=== PATIENT | male | born 1975 | race African-American/Black ===

== ENCOUNTER 2019-01-08 07:51 | Observation (INO) ==
--- NOTE | 2019-01-08 08:31 | PROVIDER DOCUMENTATION ---
[id number] Abuse/Overdose - General Chief Complaint: Edema Stated Complaint: LEGS SWOLLEN Time Seen by Provider: 01/08/19 08:25 Source: patient Allergies/Adverse Reactions: Allergies Allergy/AdvReac Type Severity Reaction Status Date / Time No Known Allergies Allergy Verified 12/15/18 00:55 Home Medications: Home Medication List Medication Instructions Recorded Confirmed Last Taken Type NK [No Home Medications] 01/08/19 01/08/19 Unknown History - History of Present Illness-Drug/Alcohol Nature of Presenting Problem: PT HAS HX OF COCAINE USED LAST NITE 9 PM ALSO HX OF HEART DAMAGE IN PAST HAD A CATH [facility].STOPPED TAKING PRESCRIBED BP MED 2ND TO RECALL IS HERE TODAY FOR SWELLING IN LEG NO SOB NO CP NO CKKDZ This episode of drinking or use began:: gradual Severity: reports: mild Situational problems related to:: reports: N/A Psychiatric Complaints: reports: rapid pulse Similar Symptoms Previously?: No Recently seen or treated by another doctor?: No - Substance Abuse Substance Use: reports: alcohol, marijuana, cocaine Review of Systems - Adult - REVIEW OF SYSTEMS - ADULT Constitutional: reports: no symptoms reported Eyes: reports: no symptoms reported Ears, Nose, Mouth & Throat: reports: no symptoms reported Cardiovascular: reports: edema. denies: chest pain, palpitations Respiratory: denies: no symptoms reported Gastrointestinal: denies: no symptoms reported Genitourinary: denies: frequency Musculoskeletal: reports: no symptoms reported Integumentary: reports: no symptoms reported Neurological: reports: no symptoms reported Psychiatric: reports: anxiety Endocrine: reports: no symptoms reported Hematologic/Lymphatic: reports: no symptoms reported. denies: blood clots Allergic/Immunologic: reports: no symptoms reported Past History - Adult - PAST MEDICAL HISTORY-ADULT Review of Records: reports: Nursing Assessment Review, Medications Reviewed Major Childhood Illnesses: reports: denies history Cardiovascular: reports: other (HEART DAMAGE) Respiratory: reports: denies history Gastrointestinal: reports: denies history Genitourinary: reports: denies history Musculoskeletal: reports: denies history Neurological: reports: denies history Endocrine/Immune: reports: denies history Other Conditions: reports: denies history - PRIOR SURGERIES/PROCEDURES Surgical/Procedure History: reports: none - IMMUNIZATION STATUS Childhood Immunizations: See Nurse Assessment Flu Vaccine: See Nurse Assessment - FAMILY HISTORY Family History: reviewed, not pertinent - SOCIAL HISTORY Smoking: cigarettes Substance Use: alcohol, marijuana, cocaine Physical Exam-General - PHYSICAL EXAM-ADULT Initial Vital Signs Reviewed: Yes - CONSTITUTIONAL General Appearance: appears well, alert, no apparent distress - EYES Eyes: PERRL/EOMI, pink conjunctivae - HEAD, EARS, NOSE, MOUTH & THROAT HENMT: normocephalic/atraumatic - NECK Neck: non-tender, full range of motion, supple - RESPIRATORY Respiratory: lungs clear - CARDIOVASCULAR Cardiovascular: regular rate, rhythm - GASTROINTESTINAL (ABDOMEN) Abdominal Exam: soft - MUSCULOSKELETAL Back Exam: normal inspection, no CVA tenderness Extremity: swelling Peripheral Pulses: dorsalis-pedis (R): 1+, dorsalis-pedis (L): 1+ - SKIN Integumentary: normal color, normal turgor - NEUROLOGIC Neurologic: grossly normal - PSYCHIATRIC Psych/Mental Status: oriented x 3 Progress - PLAN OF CARE/RESULTS Progress/Plan/Lab Results: Vital Signs - 8 hr 01/08/19 08:03 Temperature 98 F Pulse Rate 114 H Respiratory Rate 19 Blood Pressure 147/94 O2 Sat by Pulse Oximetry 98 Laboratory Results - last 24 hr 01/08/19 01/08/19 01/08/19 08:35 08:35 08:35 WBC 8.20 RBC 4.82 Hgb 13.8 L Hct 42.7 MCV 88.6 MCH 28.6 MCHC 32.3 L RDW Std Deviation 13.2 Plt Count 276 MPV 10.9 H Immature Gran % (Auto) 0.2 Neut % (Auto) 66.6 Lymph % (Auto) 24.1 [place] % (Auto) 8.2 Eos % (Auto) 0.5 Baso % (Auto) 0.4 Immature Gran # (Auto) 0.02 Neut # (Auto) 5.46 Lymph # (Auto) 1.98 [place] # (Auto) 0.67 H Eos # (Auto) 0.04 Baso # (Auto) 0.03 Sodium 139 Potassium 4.0 Chloride 104 Carbon Dioxide 24 L Anion Gap 11 BUN 12 Creatinine 1.1 Estimated GFR/1.73 m2 > 60 BUN/Creatinine Ratio 11 Glucose 127 H Calculated Osmolality 279 Calcium 8.3 L Total Bilirubin 2.40 H AST 20 ALT 25 Alkaline Phosphatase 68 Troponin T < 0.010 [id number] Pept Total Protein 5.8 L Albumin 3.9 Globulin 2.0 Albumin/Globulin Ratio 2.0 Urine Source Urine Color Urine Clarity Urine pH Ur Specific [place] Urine Protein Urine Ketones Urine Blood Urine Nitrite Urine Bilirubin Urine Urobilinogen Urine Microscopic RBC Urine WBC Urine Microscopic WBC Ur Epithelial Cells Urine Crystals Urine Bacteria Urine Casts Urine Yeast Urine Glucose Urine Opiates Screen Ur Oxycodone Screen Urine Methadone Screen U Propoxyphene Qual Ur Barbituates Screen Ur Tricyclics Screen Ur Phencyclidine Scrn Ur Amphetamines Screen U Methamphetamines Scrn U Benzodiazepines Scrn Urine Cocaine Screen U Cannabinoids Screen 01/08/19 01/08/19 01/08/19 08:35 08:45 08:45 WBC RBC Hgb Hct MCV MCH MCHC RDW Std Deviation Plt Count MPV Immature Gran % (Auto) Neut % (Auto) Lymph % (Auto) [place] % (Auto) Eos % (Auto) Baso % (Auto) Immature Gran # (Auto) Neut # (Auto) Lymph # (Auto) [place] # (Auto) Eos # (Auto) Baso # (Auto) Sodium Potassium Chloride Carbon Dioxide Anion Gap BUN Creatinine Estimated GFR/1.73 m2 BUN/Creatinine Ratio Glucose Calculated Osmolality Calcium Total Bilirubin AST ALT Alkaline Phosphatase Troponin T Oxs-M-Ckhujnzntcv Pept 5644 H Total Protein Albumin Globulin Albumin/Globulin Ratio Urine Source CLEAN CATCH Urine Color YELLOW Urine Clarity SL. CLOUDY A Urine pH 6.5 Ur Specific [place] 1.025 Urine Protein 3+(500 mg/dL) A Urine Ketones TRACE Urine Blood 1+ A Urine Nitrite POSITIVE A Urine Bilirubin NEGATIVE Urine Urobilinogen 4 Urine Microscopic RBC <10 Urine WBC 1+ A Urine Microscopic WBC TNTC A Ur Epithelial Cells <10 Urine Crystals NONE SEEN Urine Bacteria 3+ Urine Casts NONE SEEN Urine Yeast NONE SEEN Urine Glucose NEGATIVE Urine Opiates Screen NONE DETECTED Ur Oxycodone Screen NONE DETECTED Urine Methadone Screen NONE DETECTED U Propoxyphene Qual NONE DETECTED Ur Barbituates Screen NONE DETECTED Ur Tricyclics Screen NONE DETECTED Ur Phencyclidine Scrn NONE DETECTED Ur Amphetamines Screen NONE DETECTED U Methamphetamines Scrn NONE DETECTED U Benzodiazepines Scrn NONE DETECTED Urine Cocaine Screen PRESUMPTIVE POSITIVE A U Cannabinoids Screen PRESUMPTIVE POSITIVE A Orders Category Date Time Status CHEST-2 VIEWS [RAD] Stat Exams 01/08/19 08:05 Completed CBC WITH ELECTRONIC DIFF [HEME] Stat Lab 01/08/19 08:35 Completed COMPREHENSIVE METABOLIC PANEL [CHEM] Stat Lab 01/08/19 08:35 Completed PRO B-NATRIURETIC PEPTIDE Stat Lab 01/08/19 08:35 Completed TROPONIN T Stat Lab 01/08/19 08:[address] W/POSS RFLX CULT [URINALYSIS] Stat Lab 01/08/19 08:45 Completed URINE CULTURE [RM] Routine Lab 01/08/19 09:11 [address]UG SCREEN [address] Stat Lab 01/08/19 08:45 Completed EKG [EKG] Routine Ther 01/08/19 08:41 Draft Result Diagrams: 01/08/19 08:35 01/08/19 08:35 - EKG 1 Time of EKG reading by physician:: 09:38 EKG Read and Signed by:: Alejandro Macias EKG Interpretation (*Must complete 3 of following elements*): Abnormal Rate: 110 Rhythm: sinus tachycardia [place]: normal QRS: poor R wave progression NC Interval: normal ST Wave: non-specific ST changes - XRAY 1 XRAY Study: Chest Impression: Abnormal (cardiomyopathy chf) Departure - Departure Date of Disposition Decision: 01/08/19 Time of Disposition Decision: 09:41 DIAGNOSIS: Cocaine abuse, Cardiomyopathy due to drug and external agent, Hypertension Disposition: ADMITTED INPATIENT 09 Certified Medical Emergency: Emergent Condition: Stable Referrals and Follow-Ups: None,PCP [Primary Care Provider] - - Critical Care Note This patient required my direct & personal management of CC.: No Attestation - Physician/ JUD Attestation Patient care was provided by Advanced Practice Provider:: No The physician spent face to face time with patient:: Yes Advanced Practice Provider documentation review:: Supervising physician onsite and consulted in the evaluation and care of this patient. The physician did have a face to face encounter with the patient.
[2019-01-08 08:50] LABS: BASO# 0.03 X1000 (0.0-0.2); BASO% 0.4 % (0.0-0.8); EOS# 0.04 X1000 (0.0-0.7); EOS% 0.5 % (0.0-10.0); HEMATOCRIT 42.7 % (42.0-52.0); HEMOGLOBIN 13.8 g/dL (14.0-18.0); IMM GRAN# 0.02 X1000 (0.0-0.04); IMM GRAN% 0.2 % (0.0-0.5); LYMPH# 1.98 X1000 (1.2-3.4); LYMPH% 24.1 % (20.5-51.1); MCH 28.6 PG (27-31); MCHC 32.3 g/dL (33-37); MCV 88.6 FL (81-99); MONO# 0.67 X1000 (0.11-0.59); MONO% 8.2 % (1.7-9.3); MPV 10.9 FL (7.4-10.4); NEUT# 5.46 X1000 (1.4-6.5); NEUT% 66.6 % (42.2-75.2); PLT 276 X1000 (130-400); RBC 4.82 XMIL (4.7-6.1); RDW 13.2 % (11.5-14.5)
[2019-01-08 09:10] LABS: BILIRUBIN URINE NEGATIVE (NEGATIVE); BLOOD URINE 1+ (NEGATIVE); CLARITY SL. CLOUDY (CLEAR); COLOR YELLOW; GLUCOSE URINE NEGATIVE (NEGATIVE); KETONE URINE TRACE mg/dL (NEGATIVE); LEUKOCYTES URINE 1+ (NEGATIVE); NITRITE URINE POSITIVE (NEGATIVE); PH URINE 6.5; SP GRAVITY URINE 1.025; UROBILINOGEN URINE 4 mg/dL
[2019-01-08 09:11] LABS: URINE BACTERIA 3+ /HFP; URINE CAST NONE SEEN /LPF; URINE CRYSTAL NONE SEEN /HPF; URINE EPITHELIAL CELLS <10 /HPF (<10); URINE RBC <10 /HPF (<10); URINE SOURCE CLEAN CATCH; URINE WBC TNTC /HPF (<10); URINE YEAST NONE SEEN /HPF
[2019-01-08 09:12] LABS: AGAP 11; ALBUMIN 3.9 g/dL (3.5-5.0); ALKALINE PHOSPHATASE 68 U/L (32-122); BUN 12 mg/dL (8-22); CALCIUM 8.3 mg/dL (8.8-10.2); CHLORIDE 104 mmol/L (98-107); COSMO 279; CREATININE 1.1 mg/dL (0.7-1.2); ESTIMATED GFR > 60; GLUCOSE 127 mg/dL (70-104); GOT 20 U/L (10-34); GPT 25 U/L (10-44); SODIUM 139 mmol/L (136-145); TCO2 24 mmol/L (25-35); TOTAL PROTEIN 5.8 g/dL (6.3-8.3)
[2019-01-08 09:14] LABS: UR AMPHETAMINES QUAL NONE DETECTED (NONE DETECT); UR BARBITUATES QUAL NONE DETECTED (NONE DETECT); UR BENZODIAZEPIN QUAL NONE DETECTED (NONE DETECT); UR CANNABINOIDS QUAL PRESUMPTIVE POSITIVE (NONE DETECT); UR COCAINE QUAL PRESUMPTIVE POSITIVE (NONE DETECT); UR METHADONE QUAL NONE DETECTED (NONE DETECT); UR METHAMPHETAMINE QUAL NONE DETECTED (NONE DETECT); UR OPIATES QUAL NONE DETECTED (NONE DETECT); UR OXYCODONE QUAL NONE DETECTED (NONE DETECT); UR PCP QUAL NONE DETECTED (NONE DETECT); UR PROPOXYPHENE QUAL NONE DETECTED (NONE DETECT); UR TCA QUAL NONE DETECTED (NONE DETECT)
--- NOTE | 2019-01-08 09:23 | EKG Report ---
Test Performed on : 01/08/2019 08:28:41 AM Test Reason : emboli Blood Pressure : / mmHG Vent. Rate : 110 BPM Atrial Rate : 110 BPM P-R Int : 134 ms QRS Dur : 086 ms QT Int : 364 ms P-R-T Axes : 049 006 011 degrees QTc Int : 492 ms Sinus tachycardia. Possible Left atrial enlargement ST & T wave abnormality, consider lateral ischemia Abnormal ECG When compared with ECG of 15-DEC-2018 01:19, (Unconfirmed) T wave inversion now evident in Anterior leads Unconfirmed Result
--- NOTE | 2019-01-08 09:31 | Diag Imaging Result Doc PS360 ---
EXAM: CHEST-2 VIEWS HISTORY: edema TECHNIQUE: PA and Lateral chest x-ray COMPARISON: 10/29/2018 FINDINGS: There is cardiomegaly. Question cardiomyopathy or pericardial effusion. There is pulmonary vascular congestion with interstitial infiltrates and small effusions.. No pneumothorax is appreciated. IMPRESSION: Cardiomegaly suggesting cardiomyopathy or pericardial effusion. Suspect developing mild cardiogenic edema versus atypical pneumonia. Correlate clinically. Electronically signed by Mallika Tripp 01/08/2019 9:29 AM
[2019-01-08] MEDS ORDERED: LASIX IV ONE (11:04)
[2019-01-08] MEDS ORDERED: NORVASC PO ONE (11:08)
[2019-01-08] MEDS: PRILOSEC PO SCH (12:02)
--- NOTE | 2019-01-08 15:45 | HISTORY AND PHYSICAL ---
ADDENDUM: Patient was seen and examined by myself. Full note dictated and discussed with nurse practitioner. Patient presented to the hospital with chest pain, palpitations, shortness of breath. He has not been taking his blood pressure medications, but has been using recreational drugs, cocaine. PLAN: We are going to admit the patient to the hospital and rule out WI, place him on Lasix for his edema. Discussed with him the importance of compliance with blood pressure medications and of stopping narcotics. We will continue to follow. cc: Tan Chase MD
--- NOTE | 2019-01-08 18:57 | HISTORY AND PHYSICAL ---
CHIEF COMPLAINT: Lower extremity edema and cough. 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 He presents to the emergency room complaining of 1 week of lower extremity edema and shortness of breath. He states that he had been vaping for quite some time. He presented to the emergency room at [facility] on December 15. At that time he reports being given steroids, albuterol inhaler and hydralazine and told to stop vaping. He states that he took his medications as instructed although he states that he took the steroids as instructed and shortness of breath resolved although over the last week he has developed bilateral lower extremity edema. He does state that he has continued to use cocaine and marijuana throughout this time with the last time he used cocaine being late yesterday evening. He denies any chest pain, any palpitations. PAST MEDICAL HISTORY: Hypertension, cocaine use and abuse, cocaine induced ND in December 2017. PAST SURGICAL HISTORY: Right arm surgery. SOCIAL HISTORY: He smokes about a half a pack a day. He does drink socially. He does use marijuana, cocaine almost daily. ALLERGIES: No known drug allergies. HOME MEDICATIONS: None. REVIEW OF SYSTEMS: Discussed with patient with pertinent positives stated in the HPI. He denied any syncope or dizziness any nausea, vomiting, diarrhea, constipation, black or bloody vomitus or stools, any fevers or chills, any hematuria, dysuria, frequency, urgency. PHYSICAL EXAMINATION: GENERAL: This is a 43-year-old gentleman who is sitting up in the bed on the [facility] floor in no distress. VITAL SIGNS: Blood pressure is 131/90 with a heart rate of 112, respirations are 16, temperature is 98.1 degrees oral with room air saturations 97%. HEENT: Pupils equal, round, react to light. EOMs are intact sclerae anicteric. Head is normocephalic, atraumatic. Mucous membranes are moist. NECK: Supple with trachea midline. CARDIOVASCULAR: Regular rate and rhythm, tachycardic. S1 and S2 are appreciated. He has bilateral lower extremity edema from about midthigh down. Calves are nontender bilateral, peripheral pulses palpable x4 extremities. PULMONARY: Breath sounds are clear. No increased work of breathing noted. GASTROINTESTINAL: Abdomen soft, nontender, nondistended. Bowel sounds in all 4 quadrants. GENITOURINARY: No CVA or suprapubic tenderness. NEUROLOGIC: He is alert and oriented x3. SKIN: Warm and dry. LABS: WBC is 8 with hemoglobin 13.8, hematocrit 42.7, platelets of 276,000. Sodium 139, potassium 4, BUN 12, creatinine 1.1 with a glucose of 127. Troponin is less than 0.010. Urine is positive for nitrites with too numerous to count white blood cells, 3+ bacteria. Urine drug screen is presumptive positive for cocaine and cannabinoids. Urine culture is pending. Chlamydia and GC by urine is pending. ASSESSMENT AND PLAN: 1. Cocaine abuse. 2. Tachycardia secondary to cocaine use. 3. Hypertension in a patient with known hypertensive, noncompliant with medications and cocaine abuse. The patient has been admitted to the medical-surgical floor and placed on telemetry which will continue, will continue to monitor vital signs, daily weights, I and O. healthy heart diet. trend troponins and cardiac profile. BMP in the morning. Norvasc 10 mg now for blood pressure and heart rate avoiding any beta blockers as he has had recent cocaine use. Of note, in review of Mr. Diamond past history echocardiogram in December 2017 revealed an ejection fraction of 50% with borderline left ventricular systolic function with mild hypokinesis. 6. Cardiac catheterization 01/15/2018 revealed no flow-limiting lesions with non ST-elevation myocardial infarction possibly due to coronary spasm versus a spontaneous reperfusion after clot, also could consider possibly takotsubo although left ventriculogram does not appear to be a classic left ventriculogram demonstrating the apical ballooning with basilar hyperkinesis. He needs to be treated medically for his left ventricular wall motion abnormalities. Would recommend permanent cessation of illicit drug. Plan was discussed with Dr. Chase. Further treatments pending hospital course. Dictated by JESICA Alejandro for Tan Chase MD cc: JESICA Alejandro MD [facility]
[2019-01-09 06:27] LABS: HEMATOCRIT 42.5 % (42.0-52.0); HEMOGLOBIN 13.3 g/dL (14.0-18.0); MCH 27.7 PG (27-31); MCHC 31.3 g/dL (33-37); MCV 88.4 FL (81-99); MPV 11.1 FL (7.4-10.4); RBC 4.81 XMIL (4.7-6.1); WBC 9.51 X1000 (4.8-10.8)
[2019-01-09 06:48] LABS: SODIUM 143 mmol/L (136-145)
[2019-01-09 06:49] LABS: AGAP 12; BUN 15 mg/dL (8-22); CHLORIDE 106 mmol/L (98-107); COSMO 287; CREATININE 1.1 mg/dL (0.7-1.2); ESTIMATED GFR > 60; GLUCOSE 115 mg/dL (70-104); TCO2 24 mmol/L (25-35)
[2019-01-09 07:20] VITALS: BP 141/103
--- NOTE | 2019-01-09 08:55 | ECHO REPORT ---
ORDER DATE: 01/08/2019 ECHOCARDIOGRAPHIC MEASUREMENTS: 1. Septal thickness 1.1. 2. Left ventricular internal diameter in diastole 6.4. 3. Posterior wall thickness 1.1. 4. Left ventricular internal diameter in systole 5.5. 5. Aortic root 3.4. 6. Left atrium 4.9. SUMMARY: 1. Adequate quality study. 2. Aortic valve is trileaflet and opens normally on 2-dimensional images. Peak gradient across the aortic valve is less than 5 mmHg. There is very mild aortic regurgitation. Mitral, tricuspid, and pulmonic valves are without evidence of structural abnormality with moderate mitral regurgitation and mild tricuspid regurgitation. The estimated systolic PA pressure by Doppler is 75 mmHg suggesting moderate to severe pulmonary hypertension. The aortic root is normal in size. 3. Moderate left ventricular enlargement with normal wall thickness demonstrated. Estimated left ventricular ejection fraction approximately 15 to 20 percent in the setting of severe global hypokinesis. Following the administration of intravenous contrast agent, Optison, there is no evidence of left ventricular thrombus. Left atrium is moderately enlarged. Right atrium and right ventricle are normal in size with grossly preserved right ventricular systolic function. 4. No pericardial effusion. 5. Appearance of inferior vena cava suggests elevated central venous pressure. cc: MD Racheal Noriega CRNP Gregory S. Cheatham, MD
[2019-01-09] MEDS ORDERED: ASPIRIN PO SCH (09:00)
[2019-01-09] MEDS ORDERED: LOPRESSOR PO SCH (09:00)
[2019-01-09] MEDS ORDERED: NORVASC PO SCH ×2 (09:00)
[2019-01-09] MEDS: PRILOSEC PO SCH (09:57)
[2019-01-09] MEDS ORDERED: COZAAR PO SCH (11:00)
--- NOTE | 2019-01-09 20:04 | DISCHARGE SUMMARY ---
ADMISSION DATE: 01/08/2019 DISCHARGE DATE: 01/09/2019 DISCHARGE DIAGNOSES: 1. Cardiomegaly secondary to cocaine use. 2. Congestive heart failure secondary to cocaine use. 3. Tachycardia secondary to cocaine use. 4. Intentional noncompliance with hypertension as he has not been on medications in well over a year. 5. Cocaine-induced myocardial infarction in December 2017. 6. Continued cocaine usage. CONSULTATIONS: None. PROCEDURES: None. BRIEF HOSPITAL COURSE: The patient is a 43-year-old male who presented to the hospital with markedly elevated blood pressures, congestive heart failure symptoms, and edema. He was treated in the usual fashion, placed on IV Lasix, blood pressure control, oxygen. On discharge, his blood pressures were improved, although still elevated at 140s over 103. We have added losartan 50 mg daily. On multiple different occasions, we discussed with him the importance of stopping cocaine and the perils if he chooses not to. Oddly enough with each discussion, he appeared intrigued as though he had never heard that information in the past. DISPOSITION ON DISCHARGE: Patient is awake, alert. He is in no distress. Overall, he is stable. States he is feeling better. Denies any fevers, chills. States the swelling in his lower extremities is better. States his shortness of breath is improved. MEDICATIONS: We will discharge him home with Norvasc 5 mg, losartan 50 mg daily. Again, discussed with him the importance of stopping smoking and stopping cocaine usage, as well as following up with a primary care and controlling his blood pressure. We discussed with him the importance of a low-salt, low-fat diet. TIME SPENT: Greater than 30 minutes was spent in total. cc: Tan Chase MD
== END 2019-01-09 12:43 | disposition home or self-care (01) ==
LOC: P.ED 07:51 → P.MEDSURG 07:51
PROVIDERS: ADMIT Family Medicine; ATTEND Family Medicine

== ENCOUNTER 2019-03-09 22:29 | Inpatient (IN) ==
[2019-03-09 23:10] LABS: BASO# 0.02 X1000 (0.0-0.2); BASO% 0.2 % (0.0-0.8); EOS# 0.12 X1000 (0.0-0.7); EOS% 1.3 % (0.0-10.0); HEMATOCRIT 42.3 % (42.0-52.0); HEMOGLOBIN 13.7 g/dL (14.0-18.0); IMM GRAN# 0.01 X1000 (0.0-0.04); IMM GRAN% 0.1 % (0.0-0.5); LYMPH# 3.11 X1000 (1.2-3.4); LYMPH% 34.7 % (20.5-51.1); MCH 28.2 PG (27-31); MCHC 32.4 g/dL (33-37); MCV 87.2 FL (81-99); MONO# 0.68 X1000 (0.11-0.59); MONO% 7.6 % (1.7-9.3); MPV 10.9 FL (7.4-10.4); NEUT# 5.03 X1000 (1.4-6.5); NEUT% 56.1 % (42.2-75.2); PLT 229 X1000 (130-400); RBC 4.85 XMIL (4.7-6.1); RDW 12.8 % (11.5-14.5); WBC 8.97 X1000 (4.8-10.8)
[2019-03-09 23:29] LABS: INR 1.17; PROTIME 15.5 Seconds (11.0-16.0)
[2019-03-09 23:30] LABS: PTT 36.3 Seconds (22.3-41.8)
[2019-03-09 23:33] LABS: AGAP 13; ALBUMIN 3.9 g/dL (3.5-5.0); ALKALINE PHOSPHATASE 84 U/L (32-122); BUN 17 mg/dL (8-22); CHLORIDE 104 mmol/L (98-107); COSMO 280; CREATININE 1.2 mg/dL (0.7-1.2); ESTIMATED GFR > 60; GLUCOSE 116 mg/dL (70-104); GOT 13 U/L (10-34); GPT 11 U/L (10-44); POTASSIUM 4.1 mmol/L (3.5-5.1); SODIUM 139 mmol/L (136-145); TCO2 22 mmol/L (25-35); TOTAL PROTEIN 5.9 g/dL (6.3-8.3)
--- NOTE | 2019-03-10 00:46 | PROVIDER DOCUMENTATION ---
This chart was entered by Lashon Loera Scribe, acting as scribe for Marlo Cook MD. HPI-Respiratory General - General Chief Complaint: Shortness of Breath Stated Complaint: SOB Time Seen by Provider: 03/09/19 22:46 Source: patient Allergies/Adverse Reactions: Patient Allergies Allergy/AdvReac Type Severity Reaction Status Date / Time No Known Allergies Allergy Verified 03/09/19 23:13 Home Medications: Home Medication List Medication Instructions Recorded Confirmed Last Taken Type Amlodipine [Norvasc] 5 mg PO DAILY #30 tab 01/09/19 03/09/19 Unknown Rx Aspirin 81 mg PO DAILY #0 chewtab 01/09/19 03/09/19 Unknown Rx Furosemide [Lasix] 40 mg PO DAILY #30 tab 01/09/19 03/09/19 Unknown Rx Losartan [Cozaar] 50 mg PO DAILY #30 tab 01/09/19 03/09/19 Unknown Rx Potassium Chloride E.r. [Micro-K] 10 meq PO DAILY #30 cap 01/09/19 03/09/19 Unknown Rx - History of Present Illness-Resp Nature of Presenting Problem: pt is a 43 yobm presenting to er w/cc sob and orthopnea for 2-3 months w/bilat LE edema. pt sts was seen in er and admitted for similar symptoms. pt has not followed up w/pcp but got rx w/refills from Dr. Chase. pt has hx of chf, heart dz, htn and mi. pt denies pain, diaphoresis and chills. Quality of Pain: reports: none Severity in ED: reports: mild Onset/Duration: reports: other (ongoing 2-3 months) Timing: reports: still present Context: reports: other (CHF) Cough Quality/Degree: reports: no cough Current Respiratory Medication Therapy: Initiated none Modifying Factors: improves with: lying down (worsens) Associated Symptoms: reports: shortness of breath, other (bilat LE edema). denies: fever/chills, heart racing, hurts to breathe Similar Symptoms Previously?: Yes Recently seen or treated by another doctor?: Yes (1.5 mon ago ) Review of Systems - Adult - REVIEW OF SYSTEMS - ADULT Constitutional: reports: no symptoms reported. denies: chills, fever, fatique Eyes: reports: no symptoms reported Ears, Nose, Mouth & Throat: reports: no symptoms reported Cardiovascular: reports: see HPI, edema (bilat LE), orthopnea. denies: chest pain, heart murmur, irregular heart rate, palpitations Respiratory: reports: no symptoms reported, shortness of breath. denies: cough, dyspnea on exertion, hemoptysis, pleurisy Gastrointestinal: reports: no symptoms reported Genitourinary: reports: no symptoms reported Musculoskeletal: reports: no symptoms reported Integumentary: reports: no symptoms reported Neurological: reports: no symptoms reported Psychiatric: reports: no symptoms reported Endocrine: reports: no symptoms reported Hematologic/Lymphatic: reports: no symptoms reported Allergic/Immunologic: reports: no symptoms reported All Other Systems: Reviewed and Negative Past History - Adult - PAST MEDICAL HISTORY-ADULT Review of Records: reports: Nursing Assessment Review, Medications Reviewed, Social history reviewed & non-contributory. Major Childhood Illnesses: reports: denies history Cardiovascular: reports: CHF, HTN, [place], other (HEART DAMAGE) Respiratory: reports: denies history Gastrointestinal: reports: denies history Obstetrical/Gynecological: reports: denies history Genitourinary: reports: denies history Musculoskeletal: reports: denies history Neurological: reports: denies history Endocrine/Immune: reports: denies history Other Conditions: reports: denies history - PRIOR SURGERIES/PROCEDURES Surgical/Procedure History: reports: orthopedic (extremity) - IMMUNIZATION STATUS Childhood Immunizations: See Nurse Assessment Flu Vaccine: See Nurse Assessment - FAMILY HISTORY Family History: reviewed, not pertinent - SOCIAL HISTORY Smoking: cigarettes, greater than 1 pack/day Provider spent 3-5 mins advising pt. on dangers of tobacco.: Discussed manners to quit use, and f/u contacts for add'l counseling. Substance Use: alcohol Alcohol Use Frequency: occasionally Physical Exam-General - PHYSICAL EXAM-ADULT Initial Vital Signs Reviewed: Yes - CONSTITUTIONAL General Appearance: appears well, alert, no apparent distress - EYES Eyes: PERRL/EOMI, pink conjunctivae - HEAD, EARS, NOSE, MOUTH & THROAT HENMT: normocephalic/atraumatic, moist mucous membranes, normal ENT inspection - NECK Neck: non-tender, full range of motion, supple, normal inspection - RESPIRATORY Respiratory: chest non-tender, lungs clear, normal breath sounds, no pleuratic c hest pain, no respiratory distress, no accessory muscle use. negative: crackles, rales, rhonchi, wheezing, crepitus - CARDIOVASCULAR Cardiovascular: normal peripheral pulses, regular rate, rhythm, no gallop, no JVD, no murmur. negative: no edema, extra beats, friction rub, irregularly irregular - GASTROINTESTINAL (ABDOMEN) Abdominal Exam: non tender, soft - LYMPHATIC Lymphatic: no adenopathy - MUSCULOSKELETAL Back Exam: normal inspection, no CVA tenderness, no vertebral tenderness Extremity: normal range of motion, non-tender, no pedal edema, no calf tenderness, normal capillary refill, pelvis stable, swelling (bilat LE edema 2+) . negative: normal inspection, deformity, erythema, pulse deficit, pedal edema, slow capillary refill, tenderness Peripheral Pulses: radial (R): 2+, radial (L): 2+ - SKIN Integumentary: normal color, normal turgor, warm/dry. negative: diaphoresis - NEUROLOGIC Neurologic: applied research director II-XII nml as tested, grossly normal, no motor/sensory deficits - PSYCHIATRIC Psych/Mental Status: normal mood/affect, normal thought content, normal thought process, oriented x 3 - HEART Score HEART Score: History: Moderately Suspicious HEART Score: ECG: Non-Specific Repolarization Disturbance/LBBB/PM HEART Score: Age: < or = 45 Years HEART Score: Risk Factors for Atherosclerotic Disease: > or = 3 Risk Factors or History of Atherosclerotic Disease HEART Score: Troponin: < or = Normal Limit Total HEART Score:: 4 Progress - PLAN OF CARE/RESULTS Progress/Plan/Lab Results: Vital Signs - 8 hr 03/09/19 22:32 03/09/19 23:45 Temperature 98 F Pulse Rate 114 H 111 H Respiratory Rate 20 26 H Blood Pressure 122/90 114/89 O2 Sat by Pulse Oximetry 96 96 Laboratory Results - last 24 hr 03/09/19 03/09/19 03/09/19 22:56 22:56 22:56 WBC 8.97 RBC 4.85 Hgb 13.7 L Hct 42.3 MCV 87.2 MCH 28.2 MCHC 32.4 L RDW Std Deviation 12.8 Plt Count 229 MPV 10.9 H Immature Gran % (Auto) 0.1 Neut % (Auto) 56.1 Lymph % (Auto) 34.7 [place]aston % (Auto) 7.6 Eos % (Auto) 1.3 Baso % (Auto) 0.2 Immature Gran # (Auto) 0.01 Neut # (Auto) 5.03 Lymph # (Auto) 3.11 Gaston # (Auto) 0.68 H Eos # (Auto) 0.12 Baso # (Auto) 0.02 PT INR PTT (Actin FS) Sodium 139 Potassium 4.1 Chloride 104 Carbon Dioxide 22 L Anion Gap 13 BUN 17 Creatinine 1.2 Estimated GFR/1.73 m2 > 60 BUN/Creatinine Ratio 14 Glucose 116 H Calculated Osmolality 280 Calcium 9.0 Total Bilirubin 2.60 H AST 13 ALT 11 Alkaline Phosphatase 84 Troponin T 0.014 Khh-X-Hyaquoezxkc Pept Total Protein 5.9 L Albumin 3.9 Globulin 2.0 Albumin/Globulin Ratio 2.0 03/09/19 03/09/19 22:56 22:56 WBC RBC Hgb Hct MCV MCH MCHC RDW Std Deviation Plt Count MPV Immature Gran % (Auto) Neut % (Auto) Lymph % (Auto) Gaston % (Auto) Eos % (Auto) Baso % (Auto) Immature Gran # (Auto) Neut # (Auto) Lymph # (Auto) Gaston # (Auto) Eos # (Auto) Baso # (Auto) PT 15.5 INR 1.17 PTT (Actin FS) 36.3 Sodium Potassium Chloride Carbon Dioxide Anion Gap BUN Creatinine Estimated GFR/1.73 m2 BUN/Creatinine Ratio Glucose Calculated Osmolality Calcium Total Bilirubin AST ALT Alkaline Phosphatase Troponin T [id number]-Y-Xzvhhyzhxtt Pept 5543 H Total Protein Albumin Globulin Albumin/Globulin Ratio Orders Category Date Time Status CHEST-1 VIEW [RAD] Stat Exams 03/09/19 22:47 Taken CBC WITH ELECTRONIC DIFF [HEME] Stat Lab 03/09/19 22:56 Completed COMPREHENSIVE METABOLIC PANEL [CHEM] Stat Lab 03/09/19 22:56 Completed PRO B-NATRIURETIC PEPTIDE Stat Lab 03/09/19 22:56 Completed PT [PROTIME WITH INR] [COAG] Stat Lab 03/09/19 22:56 Completed PTT [COAG] Stat Lab 03/09/19 22:56 Completed TROPONIN T Stat Lab 03/09/19 22:56 Completed EKG [EKG] Stat Ther 03/09/19 22:36 Ordered Result Diagrams: 03/09/19 22:56 03/09/19 22:56 - EKG 1 Time of EKG reading by physician:: 22:47 EKG Read and Signed by:: Marlo Cook EKG Interpretation (*Must complete 3 of following elements*): Abnormal Rate: 108 (possible left atrial enlargement ) Rhythm: [facility] [place]: normal QRS: normal NC Interval: normal ST Wave: non-specific ST changes (T wave abnormality consider lateral ischemia) - CONSULTS/PCP/HOSPITALIST Notification #1 *Consult/PCP/Hospitalist*: Dr Collins Time Discussed: 00:44 Consult Disposition: Admit Departure - Departure Date of Disposition Decision: 03/10/19 Time of Disposition Decision: 00:45 DIAGNOSIS: CHF exacerbation Disposition: ADMITTED INPATIENT 09 Certified Medical Emergency: Emergent Condition: Fair Referrals and Follow-Ups: None,PCP [Primary Care Provider] - - Critical Care Note This patient required my direct & personal management of CC.: No Attestation - Physician/ JUD Attestation Patient care was provided by Advanced Practice Provider:: No The physician spent face to face time with patient:: Yes Advanced Practice Provider documentation review:: Supervising physician onsite and consulted in the evaluation and care of this patient. The physician did have a face to face encounter with the patient. This chart was documented by the indicated scribe, (Lashon Loera, [place]) and accurately reflects the services I performed and decisions made by me, Marlo Cook MD, as attested by the provider's signature.
[2019-03-10] MEDS ORDERED: ZOFRAN IV PRN (00:47)
[2019-03-10] MEDS ORDERED: ASPIRIN PO ONE (00:49)
[2019-03-10] MEDS ORDERED: LASIX IV ONE (01:18)
--- NOTE | 2019-03-10 02:27 | EKG Report ---
Test Performed on : 03/09/2019 10:47:06 PM Test Reason : SOB Blood Pressure : / mmHG Vent. Rate : 108 BPM Atrial Rate : 108 BPM P-R Int : 148 ms QRS Dur : 086 ms QT Int : 366 ms P-R-T Axes : 059 013 -06 degrees QTc Int : 490 ms Sinus tachycardia. Possible Left atrial enlargement T wave abnormality, consider lateral ischemia Abnormal ECG When compared with ECG of 08-JAN-2019 08:28, T wave inversion no longer evident in Anterior leads Unconfirmed Result
--- NOTE | 2019-03-10 07:28 | Diag Imaging Result Doc PS360 ---
EXAM: CHEST-1 VIEW HISTORY: sob TECHNIQUE: Single view COMPARISON: 01/08/2019 FINDINGS: The lungs are well expanded. The heart remains enlarged. There are infiltrates in the mid left lung. No pleural effusions identified. IMPRESSION: Cardiomegaly with left-sided pneumonia. Follow-up PA and lateral recommended. Electronically signed by Marc King 03/10/2019 7:25 AM
[2019-03-10] MEDS: COZAAR PO SCH (09:11)
[2019-03-10] MEDS: KLOR-CON PO SCH (09:11)
[2019-03-10] MEDS: LASIX IV SCH ×2 (09:11→21:02)
[2019-03-10] MEDS: ASPIRIN PO SCH (09:11)
[2019-03-10] MEDS: NORVASC PO SCH (09:11)
[2019-03-10] MEDS ORDERED: TYLENOL PO PRN (09:59)
[2019-03-10 11:24] LABS: URINE SOURCE CLEAN CATCH
[2019-03-10 11:33] LABS: BILIRUBIN URINE NEGATIVE (NEGATIVE); BLOOD URINE NEGATIVE (NEGATIVE); COLOR STRAW; GLUCOSE URINE NEGATIVE (NEGATIVE); KETONE URINE NEGATIVE (NEGATIVE); LEUKOCYTES URINE NEGATIVE (NEGATIVE); NITRITE URINE NEGATIVE (NEGATIVE); PROTEIN URINE NEGATIVE (NEGATIVE); SP GRAVITY URINE 1.008; TURBIDITY URINE CLEAR (CLEAR); UR EPITHELIAL CELLS <10 /HPF (<10); URINE BACTERIA NEGATIVE /HPF; URINE RBC <10 /HPF (<10); URINE WBC <10 /HPF (<10); UROBILINOGEN URINE NORMAL (NORMAL)
[2019-03-10 11:46] LABS: UR AMPHETAMINES QUAL NONE DETECTED (NONE DETECT); UR BARBITUATES QUAL NONE DETECTED (NONE DETECT); UR BENZODIAZEPIN QUAL NONE DETECTED (NONE DETECT); UR COCAINE QUAL NONE DETECTED (NONE DETECT); UR METHADONE QUAL NONE DETECTED (NONE DETECT); UR METHAMPHETAMINE QUAL NONE DETECTED (NONE DETECT); UR OPIATES QUAL NONE DETECTED (NONE DETECT); UR OXYCODONE QUAL NONE DETECTED (NONE DETECT); UR PCP QUAL NONE DETECTED (NONE DETECT); UR PROPOXYPHENE QUAL NONE DETECTED (NONE DETECT); UR TCA QUAL NONE DETECTED (NONE DETECT)
[2019-03-10 11:47] LABS: UR CANNABINOIDS QUAL PRESUMPTIVE POSITIVE (NONE DETECT)
--- NOTE | 2019-03-10 15:13 | ECHO REPORT ---
ORDER DATE: 03/10/2019 INTERPRETING PHYSICIAN: Dr. Vladislav Avila ECHOCARDIOGRAPHIC MEASUREMENTS: 1. Interventricular septum: 1.1 cm. 2. Posterior wall: 1.1 cm. 3. Diastolic diameter: 6.3 cm. 4. Right ventricle: 5.0 cm. 5. Left atrium: 5.0 cm. 6. Aortic root: 3.2 cm. SUMMARY OF THE 2-DIMENSIONAL IMAGIN. Dilated left ventricle with severely reduced systolic function. Estimated ejection fraction of 20%. There is global hypokinesis. 2. Aortic valve leaflets are trileaflet. 3. Mitral valve was normal. 4. Pulmonic valve was normal. 5. Tricuspid valve was normal. 6. There is mild pulmonary regurgitation. 7. There is moderate mitral regurgitation eccentric. 8. There is moderate tricuspid regurgitation. Peak velocity across the tricuspid valve was 3 m/sec. 9. Pulmonary artery systolic pressure of 50 mmHg. 10. Peak velocity across the aortic valve less than 2 m/sec. There is no aortic stenosis or regurgitation. 11. There is pulmonary arterial hypertension. 12. There is moderate biatrial enlargement. 13. There is diastolic dysfunction. 14. There is no pericardial effusion or obvious intracardiac mass or thrombus seen. cc: Vladislav Avila MD
--- NOTE | 2019-03-10 19:39 | HISTORY AND PHYSICAL ---
PRIMARY CARE PROVIDER: None. EVENT MANAGER: Dr. Avila. CHIEF COMPLAINT: Shortness of breath. HISTORY OF PRESENT ILLNESS: Mr. Desiree Diamond is a 43-year-old male with a medical history of cocaine abuse, marijuana abuse, hypertension, systolic congestive heart failure, [place] from cocaine in December 2017, and is now here with complaints of what he felt like to be fluid on his lungs. He states this has been going on since October or November. He has to sleep in an incline, but most recently over the last couple of days has essentially just been feeling like he is smothering in his sleep, coughing up pink frothy sputum. He has also noticed worsening swelling in the bilateral lower extremities over the last couple of days. He denies being out of medication. He states he is taking his medication as prescribed. He denies having any cocaine use since December. His last admission x-ray shows that there are infiltrates in the mid left lung along with some cardiomegaly. He is currently being treated for acute systolic congestive heart failure, and we are going to get a CT to evaluate the left lower lobe as this is the same thing that was on imaging from December. He denies having fever, chills, or coughing up any colors other than the pink frothy sputum, so will follow up on his CAT scan. PAST MEDICAL HISTORY: 1. Hypertension. 2. Cocaine abuse. 3. Marijuana abuse. 4. Myocardial infarction, secondary to cocaine abuse. This was December 2017. Left heart catheterization showed no coronary disease. 5. Systolic congestive heart failure with last ejection fraction in December of this year being 15 to 20 percent, and a PA systolic pressure of 75 mmHg. 6. Moderate to severe pulmonary hypertension, with systolic pressure of 75 mmHg. PAST SURGICAL HISTORY: Left heart catheterization, December 2017, with a right radial approach. He has not had right arm surgery. He actually just had a right radial approach to his heart catheterization. No other surgeries. SOCIAL HISTORY: Less than a half pack per day. Has been smoking since the age of 18. He also smokes marijuana on a daily basis. Cocaine he last used December 2018, this year. He drinks Estrellita, around 4 to 5 ounces per shot, and he drinks around 2 shots along with 4 to 5 beers on Fridays and Saturdays, essentially every weekend or every other weekend. He is not . He has 2 children. He is on disability. FAMILY HISTORY: Mother had colon cancer. He had a grandmother who had 2 myocardial infarctions. His brother has diabetes. His sister had hydrocephalus. He does not know his father's medical history. ALLERGIES: No known drug allergies. HOME MEDICATIONS: 1. Aspirin 81 mg p.o. daily. 2. Cozaar 50 mg p.o. daily. 3. Lasix 40 mg p.o. daily. 4. Potassium chloride 10 mEq p.o. daily. 5. Norvasc 5 mg p.o. daily. REVIEW OF SYSTEMS: A 14 point review of systems is complete and all were negative except for those mentioned above in HPI. PHYSICAL EXAMINATION: VITAL SIGNS: Temperature 97.6 degrees, heart rate 102, respiratory rate 16, blood pressure 120/101, O2 saturation 98% on room air. GENERAL: Mr. Desiree Diamond is a 43-year-old male. He is in no acute distress. He is able to answer questions appropriately. HEENT: Atraumatic, normocephalic. Pupils equal, round, reactive to light. Extraocular movements intact. Mucous membranes are moist. NECK: Trachea midline. CARDIOVASCULAR: S1, S2. Tachycardic rate and rhythm. No rubs, gallops, murmurs. He has 2+ pitting lower extremity edema, +2 dorsalis pedal pulses, +2 radial pulses. Negative for carotid bruits. He has positive JVD even sitting at a 90 degree angle. PULMONARY: Clear to auscultate. Bilateral breath sounds. No accessory muscle use or work of breathing noted. GI: Soft, nontender, nondistended. Positive bowel sounds x4. EXTREMITIES: Moves all extremities equally. Full range of motion. NEUROLOGIC: Alert and oriented x3. Follows commands. Sensory is intact. SKIN: Warm, dry, intact. LABORATORY DATA: White blood cells 8000, hemoglobin 13, hematocrit 42, platelet count 229,000. INR is 1.17. Sodium 139, potassium 4.1, BUN 17, creatinine is 1.2, glucose 116, calcium 9.0, bilirubin is 2.60, AST 13, ALT 11. Troponin less than 0.01. ProBNP 5543. Albumin 3.9. IMAGING: Chest x-ray: Cardiomegaly with left-sided pneumonia with infiltrates in the mid left lung. EKG: Sinus tachycardia, rate 108, QTc 490. ASSESSMENT AND PLAN: 1. Acute on chronic systolic congestive heart failure, cardiomyopathy, with low ejection fraction. May want to consider getting a cardiology consult while he is here. If not, he definitely needs to follow up with Dr. Avila when he gets out. He states he has not seen him in 6 months. I am not seeing where he is on a beta alvaro such as Coreg or Entresto. May consider starting these medications, but it could be maybe even an issue of not being able to afford it, I am really not sure, but he did get Lasix. He takes Lasix at home and he is getting intravenous Lasix here. His respiratory effort has decreased. He feels like he can breathe much better. He has been having shortness of breath and worsening shortness of breath at night with pink frothy sputum. I do question whether he is taking his medications as prescribed. He did have the amlodipine, the Lasix, the losartan, and the potassium filled on 01/09/2019, but it was only a 30 day supply, so he has probably been out of his medication for at least 2 weeks if he really was taking it like he was supposed to. 2. History of cocaine use and abuse. He states the last time he used was in December when he came in last time. We will get a urine drug screen while he is here. Encouraged to keep away from cocaine. 3. Possible left middle lobe to lower lobe pneumonia. It was present on previous imaging. His white count is normal. He is not coughing up any colors. He has not had any fevers, so we are going to get a CAT scan to evaluate this area. Currently not on antibiotics. He was not given any antibiotics in the emergency room either, so let us just see what this CAT scan shows. We may have to get him started on antibiotics. 4. Tobacco abuse. Cessation discussed. 5. Hypertension. Home medications continued. 6. Deep venous thrombosis prophylaxis. Currently, he has sequential compression devices. 7. Hyperbilirubinemia. Could be secondary to the congestive heart failure. He has had elevated bilirubin levels at least since December 2017. Dictated by JESICA Campbell for Landen Valverde MD Addendum: Patient seen and examined by myself. Agree with JESICA note. It reflects my assessment and plan. Patient is being admitted to hospital for CHF exacerbation. Will order an echocardiogram and will continue with Lasix started at ER. Because of suspicious for pneumonia will order a CT of thorax and will go from there. Patient is not having any fever or any elevated WBC. cc: JESICA Campbell MD MTDD
[2019-03-11 05:58] VITALS: BP 119/88
[2019-03-11 06:42] LABS: BASO# 0.03 X1000 (0.0-0.2); BASO% 0.4 % (0.0-0.8); EOS# 0.09 X1000 (0.0-0.7); EOS% 1.1 % (0.0-10.0); HEMATOCRIT 43.4 % (42.0-52.0); HEMOGLOBIN 13.9 g/dL (14.0-18.0); IMM GRAN# 0.01 X1000 (0.0-0.04); IMM GRAN% 0.1 % (0.0-0.5); LYMPH# 2.39 X1000 (1.2-3.4); MCH 28.1 PG (27-31); MCV 87.7 FL (81-99); MONO# 0.61 X1000 (0.11-0.59); MONO% 7.4 % (1.7-9.3); MPV 10.9 FL (7.4-10.4); PLT 253 X1000 (130-400); RBC 4.95 XMIL (4.7-6.1); RDW 12.7 % (11.5-14.5); WBC 8.23 X1000 (4.8-10.8)
[2019-03-11 07:28] LABS: AGAP 12; BUN 14 mg/dL (8-22); CALCIUM 8.9 mg/dL (8.8-10.2); CHLORIDE 105 mmol/L (98-107); COSMO 283; CREATININE 1.1 mg/dL (0.7-1.2); GLUCOSE 120 mg/dL (70-104); POTASSIUM 3.9 mmol/L (3.5-5.1); SODIUM 141 mmol/L (136-145); TCO2 24 mmol/L (25-35)
[2019-03-11 07:29] LABS: ALBUMIN 3.7 g/dL (3.5-5.0); ALKALINE PHOSPHATASE 71 U/L (32-122); GOT 11 U/L (10-34); GPT 10 U/L (10-44); MAGNESIUM 1.8 mg/dL (1.5-2.7); TOTAL PROTEIN 6.1 g/dL (6.3-8.3)
--- NOTE | 2019-03-11 10:13 | Diag Imaging Result Doc PS360 ---
EXAM: CT THORAX W/CONTRAST - 03/11/2019 HISTORY: pneumonia TECHNIQUE: CT thorax with intravenous contrast COMPARISON: 12/15/2018 FINDINGS: There are patchy infiltrates at the left upper lobe and superior segment left lower lobe. There is dependent atelectasis at the left lower lobe. There is mild infiltrate or edema at the right infrahilar region. There is no substantial pleural effusion or pneumothorax identified. There is mild prevascular mediastinal adenopathy similar to prior. There is mild cardiomegaly. The right kidney is not visualized on included sections of the upper abdomen and may be located below the lowest image of the exam, or may be congenitally absent. IMPRESSION: Patchy infiltrates at left upper lobe and superior segment left lower lobe. These may relate to pneumonia or mild pulmonary edema. Stable mild mediastinal adenopathy. Mild cardiomegaly. This exam was performed using automated exposure control, adjustment of mA or kV according to patient size, and/or use of iterative reconstruction technique. Electronically signed by Naresh Abarca 03/11/2019 10:11 AM
[2019-03-11] MEDS: COZAAR PO SCH (10:26)
[2019-03-11] MEDS: NORVASC PO SCH (10:26)
[2019-03-11] MEDS: KLOR-CON PO SCH (10:26)
[2019-03-11] MEDS: LASIX IV SCH (10:27)
[2019-03-11] MEDS: ASPIRIN PO SCH (10:27)
--- NOTE | 2019-03-13 20:35 | DISCHARGE SUMMARY ---
ADMISSION DATE: 03/10/2019 DISCHARGE DATE: 03/11/2019 ADMISSION DIAGNOSES: 1. Acute on chronic systolic congestive heart failure, cardiomyopathy with low ejection fraction. 2. History of cocaine use and abuse. 3. Possible left middle lobe to lower lobe pneumonia. 4. Tobacco abuse. 5. Hypertension. 6. Hyperbilirubinemia.. DISCHARGE DIAGNOSES: 1. Acute on chronic systolic congestive heart failure, cardiomyopathy with low ejection fraction. 2. History of cocaine use and abuse. 3. Possible left middle lobe to lower lobe pneumonia. 4. Tobacco abuse. 5. Hypertension. 6. Hyperbilirubinemia.. 7. Consideration of possible pneumonia. There was a chest CT and it also showed pneumonia. It also said mild pulmonary edema as well. CONSULTATIONS: None. SURGERIES AND PROCEDURES: None. HOSPITAL COURSE: Mr. 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 He was now here with complaints of what he felt like to be fluid on his lungs. He stated it had been going on since at least October or November. He has to sleep at an incline, but essentially has just been feeling like he is smothering in his sleep. He wakes up and coughs up pink frothy sputum. Noticed more swelling in the lower extremities over the last couple of days prior to admit, and he was admitted for acute systolic congestive heart failure. He received IV Lasix. Also received antibiotics for the pneumonia in the left lower lobe. CT also showed left lower lobe pneumonia versus pulmonary edema, even though he never had an elevated white blood cell count, and he was not really coughing up any colors other than [id number] colors. His vitals remained stable. He was sent home with some antibiotics. DISCHARGE VITAL SIGNS: Temperature 97.8, heart rate 100, respiratory rate 20, blood pressure 119/88, O2 saturation 100% on room air. DISCHARGE LAB DATA: White blood cells 8000, hemoglobin 13, hematocrit 43, platelet count 253. Sodium 141, potassium 3.9, BUN 14, creatinine 1.1, glucose 120. Calcium 8.9, magnesium 1.8. Bilirubin is 2.10, AST 11, ALT 10. Urine drug screen positive for cannabinoids. No cultures. PERTINENT IMAGING: Chest x-ray: Cardiomegaly with left-sided pneumonia. Echocardiogram: Pulmonary systolic pressure of 50, global hypokinesis with an ejection fraction of 20%. There is diastolic dysfunction as well. Chest CT showed patchy infiltrates at the left upper lobe and superior segment of the left lower lobe. These may relate to pneumonia or mild pulmonary edema. There is stable mild mediastinal adenopathy and mild cardiomegaly. EKG: Sinus tachycardia, rate 108, QTc 490. DISCHARGE MEDICATIONS: 1. Aspirin 81 mg p.o. daily. 2. Coreg 3.125 mg p.o. twice daily. 3. Cozaar 50 mg p.o. daily. 4. Lasix 40 mg p.o. daily. 5. Levaquin 750 mg p.o. daily for 10 days. 6. Potassium 10 mEq p.o. daily. 7. Norvasc 5 mg p.o. daily. DISCHARGE DIET: Heart healthy. DISCHARGE ACTIVITY: As tolerated. FOLLOWUP: With Dr. Avila, and he needs to find a primary. DISCHARGE INSTRUCTIONS: If condition changes, contact physician and/or return to the emergency department. Changes may include but are not limited to shortness of breath, increased fatigue, excessive bleeding, unexplained weight loss or gain, unmanageable pain, or signs or symptoms of infection. Call to make a follow-up appointment with Dr. Avila for 1 to 2 weeks. Notify MD or return emergency department immediately for any of the following: Weight gain of greater than 1 pound in a day or 4 pounds in a week, swelling in the lower extremities, fever greater than 101, shortness of breath or chest pain. Keep all followup appointments. Keep a record of your daily weight. Limit salt and fluid intake. Take all prescribed medications as directed. Return to emergency department immediately for any new or worsening symptoms. If you do not have a primary care provider, please see the physician referral phone number hotline list. DISCHARGE DISPOSITION: Home. Dictated by JESICA Campbell for Landen Valverde MD Addendum: Patient seen and examined by myself. Agree with JESICA note. It reflects my assessment and plan. Patient is being discharged in stable condition. Follow up with PCP in a week. cc: JESICA Campbell MD [facility]
== END 2019-03-11 12:42 | disposition home or self-care (01) | DRG 291 ==
LOC: P.ED 22:29 → P.MEDSURG 03-10 01:15
PROVIDERS: ATTEND Internal Medicine

== ENCOUNTER 2019-03-21 19:03 | Inpatient (IN) ==
[2019-03-21 19:39] LABS: BASO# 0.04 X1000 (0.0-0.2); BASO% 0.4 % (0.0-0.8); EOS# 0.08 X1000 (0.0-0.7); EOS% 0.8 % (0.0-10.0); HEMATOCRIT 48.5 % (42.0-52.0); HEMOGLOBIN 15.7 g/dL (14.0-18.0); LYMPH# 3.27 X1000 (1.2-3.4); LYMPH% 34.5 % (20.5-51.1); MCH 28.2 PG (27-31); MCHC 32.4 g/dL (33-37); MCV 87.2 FL (81-99); MONO# 0.66 X1000 (0.11-0.59); MPV 10.6 FL (7.4-10.4); NEUT# 5.42 X1000 (1.4-6.5); NEUT% 57.3 % (42.2-75.2); PLT 277 X1000 (130-400); RBC 5.56 XMIL (4.7-6.1); RDW 13.2 % (11.5-14.5); WBC 9.47 X1000 (4.8-10.8)
[2019-03-21 19:45] LABS: INR 1.37; PROTIME 17.1 Seconds (11.0-16.0)
[2019-03-21 19:46] LABS: PTT 31.6 Seconds (22.3-41.8)
--- NOTE | 2019-03-21 19:56 | Diag Imaging Result Doc PS360 ---
EXAM: CHEST-2 VIEWS HISTORY: sob TECHNIQUE: Two views COMPARISON: 03/15/2019 FINDINGS: The lungs are well expanded. The heart is enlarged. The vessels are not distended. There are no infiltrates. No pleural effusions. IMPRESSION: Cardiomegaly Electronically signed by Marc King 03/21/2019 7:54 PM
[2019-03-21 20:02] LABS: AGAP 16; ALBUMIN 3.9 g/dL (3.5-5.0); ALKALINE PHOSPHATASE 83 U/L (32-122); BUN 19 mg/dL (8-22); CALCIUM 8.7 mg/dL (8.8-10.2); CHLORIDE 103 mmol/L (98-107); CK PROFILE 105 U/L (24-204); COSMO 288; CREATININE 1.5 mg/dL (0.7-1.2); ESTIMATED GFR > 60; GLUCOSE 107 mg/dL (70-104); GOT 17 U/L (10-34); GPT 14 U/L (10-44); POTASSIUM 4.3 mmol/L (3.5-5.1); SODIUM 143 mmol/L (136-145); TCO2 24 mmol/L (25-35); TOTAL BILIRUBIN 3.31 mg/dL (0.20-1.00); TOTAL PROTEIN 5.9 g/dL (6.3-8.3)
[2019-03-21] MEDS ORDERED: LASIX IV ONE (20:46)
--- NOTE | 2019-03-21 20:51 | EKG Report ---
Test Performed on : 03/21/2019 7:08:59 PM Test Reason : sob Blood Pressure : / mmHG Vent. Rate : 120 BPM Atrial Rate : 120 BPM P-R Int : 134 ms QRS Dur : 084 ms QT Int : 330 ms P-R-T Axes : 057 005 015 degrees QTc Int : 466 ms Sinus tachycardia. Left atrial enlargement ST & T wave abnormality, consider lateral ischemia Abnormal ECG When compared with ECG of 15-MAR-2019 04:28, (Unconfirmed) No significant change was found Unconfirmed Result
[2019-03-21 21:17] LABS: UR AMPHETAMINES QUAL NONE DETECTED (NONE DETECT); UR BARBITUATES QUAL NONE DETECTED (NONE DETECT); UR BENZODIAZEPIN QUAL NONE DETECTED (NONE DETECT); UR CANNABINOIDS QUAL PRESUMPTIVE POSITIVE (NONE DETECT); UR COCAINE QUAL NONE DETECTED (NONE DETECT); UR METHADONE QUAL NONE DETECTED (NONE DETECT); UR OPIATES QUAL NONE DETECTED (NONE DETECT); UR OXYCODONE QUAL NONE DETECTED (NONE DETECT); UR PCP QUAL NONE DETECTED (NONE DETECT)
[2019-03-21] MEDS ORDERED: ZOSYN 3.375 GM in NS 50 ML IV ONE (22:45)
[2019-03-21] MEDS ORDERED: LANOXIN IV ONE (23:30)
[2019-03-21] MEDS ORDERED: TYLENOL PO PRN (23:30)
[2019-03-21] MEDS ORDERED: ZOFRAN IV PRN (23:30)
[2019-03-21] MEDS: ZOSYN 3.375 GM in NS 50 ML IV SCH (23:49)
--- NOTE | 2019-03-22 00:45 | HISTORY AND PHYSICAL ---
PRIMARY CARE PROVIDER: JESICA Day. REASON FOR ADMISSION: One-day history of upper abdominal pain and two-day history of orthopnea. HISTORY OF PRESENT ILLNESS: Mr. Desiree Diamond is a 43-year-old male past medical history of cocaine abuse, marijuana abuse, hypertension and systolic heart failure with EF of 15% to 20 percent. Comes in today complaining primarily of epigastric pain which radiates to his chest. He says it is a crampy pain. It eases when he drinks water, but it gets worse with movement. He denies any fever or chills. He initially thought that he was constipated and defecated twice a day brownish well-formed stools. No bleeding noted. He denies any genitourinary complaints. He has since vomited 4 times a day with no blood, no coffee grounds and he has intermittent nausea. Also complains that prior to the onset of these symptoms 2 days ago, he was having increasing orthopnea, PND, and leg swelling. He was seen at [facility] a week ago and was given Lasix which initially decreased the leg swelling, but over the last 3 days the edema has gotten worse. Over , he drank 3 to 4 cans of soda and a can of beer. He smokes marijuana on a daily basis. He denies any cocaine use. REVIEW OF SYSTEMS: No cough. No other additional cardiorespiratory complaints. Twelve system was done. Positive findings per HPI. ALLERGIES: No allergies. HOME MEDICATIONS: Patient said he ran out of blood pressure medications and only been taking Lasix and potassium for the last 3 days. His home medications include amlodipine 5 mg daily, losartan 50 mg daily, Lasix 40 mg daily, and potassium chloride 10 mEq daily. SOCIAL HISTORY: Drinks beer only occasionally. Marijuana daily. Smokes a half a pack a day. , lives with his . FAMILY HISTORY: Positive for colon cancer, MIs, hydrocephalus, diabetes in first-degree relatives. SURGICAL HISTORY: Other than a left calf, he has not had any other surgery. LABORATORY WORK: White count 9000, hemoglobin and hematocrit 15 and 40, platelets 277,000, normal differential. BUN is 19, creatinine 1.5, total bilirubin is 3.3. Normal transaminases. Troponin x2 negative. ProBNP 9300 which is a marked increase from the last one of 3100. PT 17, INR is 1.3. UDS positive for cannabinoids. CT of the abdomen preliminary report shows pericholecystic fluid suggestive of cholecystitis. Chest film surprisingly does show any significant increased vascular markings, but there is cardiomegaly. PHYSICAL EXAMINATION: VITAL SIGNS: Blood pressure 142/113, heart rate is 115, respiratory rate is 20, temperature is 97.7, 95% on room air. GENERAL: He is a young man in no acute distress. A and O x3 with normal mood and affect. HEENT: Head is normocephalic, atraumatic. Eyes, DIANNA, EOMI. He is anicteric, not pale. ENT exam is grossly normal. Some cyanosis. NECK: Supple with positive hepatojugular reflux. No bruit or thyromegaly. CHEST: Few bibasilar crepitations heard. No wheezes. CARDIOVASCULAR: First and second heart sounds heard. No gallops. Rhythm regular. ABDOMEN: Full, soft, with tenderness mainly confined to the right upper quadrant area. Equivocal Cedeño sign. Bowel sounds are hypoactive. RECTAL: Exam deferred at this time. EXTREMITIES: The patient has 2+ pitting edema up to the knees. Good distal pulse volumes, regular, symmetrical and no peripheral cyanosis or clubbing. NEUROLOGICAL: No gross focal deficits. SKIN: Intact. No breakdown, lesion, erythema. COLIN exam is grossly normal. ASSESSMENT: 1. Cholecystitis. 2. Mild acute on chronic systolic heart failure. 3. Hypertensive heart disease with heart failure. 4. Marijuana abuse. PLAN: The patient will be optimally diuresed over the next couple days if surgery is considered to be of a semi urgent need. At this point in time, the patient will be treated with antibiotics. Dr. Pineda has been notified and will patient in the morning. This could either be done electively as an outpatient if patient's symptoms improve or if the patient is optimally diuresed and medically managed. The patient's RCRI is about 1%. We will switch patient from amlodipine to digoxin and Aldactone. Beta-blockers can be started at a much later date. The patient was counseled on the need to avoid alcohol and sodas which can aggravate heart failure and try as much to abstain from marijuana and smoking. Elevated bilirubin seems more likely to be due to passive congestion from congestive heart failure. If need be, an upper quadrant sonogram will be useful in this patient to assess the biliary tree. cc: MD Cecil Rai CRNP MTDD
[2019-03-22] MEDS: ZOSYN 3.375 GM in NS 50 ML IV SCH ×3 (05:15→21:32)
--- NOTE | 2019-03-22 06:53 | PROVIDER DOCUMENTATION ---
This chart was entered by Magdy Gonsalez Scribe, acting as scribe for Kameron Bridges MD. HPI-Cardiac General - General Chief Complaint: Shortness of Breath Stated Complaint: EDEMA IN LEGS, SOB, ABD PAIN Time Seen by Provider: 03/21/19 19:21 Source: patient Allergies/Adverse Reactions: Patient Allergies Allergy/AdvReac Type Severity Reaction Status Date / Time No Known Allergies Allergy Verified 03/15/19 04:23 Home Medications: Home Medication List Medication Instructions Recorded Confirmed Last Taken Type Amlodipine [Norvasc] 5 mg PO DAILY #30 tab 01/09/19 03/21/19 03/09/19 08:00 Rx Furosemide [Lasix] 40 mg PO DAILY #30 tab 01/09/19 03/21/19 03/09/19 08:00 Rx Losartan [Cozaar] 50 mg PO DAILY #30 tab 01/09/19 03/21/19 03/09/19 08:00 Rx Potassium Chloride E.r. [Micro-K] 10 meq PO DAILY #30 cap 01/09/19 03/21/19 03/09/19 08:00 Rx - History of Present Illness-Cardiac Nature of Presenting Problem: Pt is a 43 y/o M presents to the ED with lower extremity swelling and upper abdominal pain that began today. Pt reports a hx of heart failure and has been seen for this before. Location: reports: epigastric Quality of Pain: reports: aching Severity in ED: moderate Onset/Duration: 4-6 hours ago Timing: still present Context/Activities at Onset: reports: none Modifying Factors: improves with: nothing Palpitation Quality: N/A History of arrythmia: reports: none Nitro Today/Relief: reports: no nitro taken today Associated Symptoms: reports: abdominal pain, edema, shortness of breath. denies: dizziness Similar Symptoms Previously?: Yes Recently Seen Here or By Another Healthcare Provider: No Review of Systems - Adult - REVIEW OF SYSTEMS - ADULT Constitutional: denies: chills, fever Eyes: reports: no symptoms reported Ears, Nose, Mouth & Throat: reports: no symptoms reported Cardiovascular: reports: edema. denies: chest pain, palpitations Respiratory: reports: cough (mild), shortness of breath Gastrointestinal: reports: abdominal pain. denies: diarrhea, nausea, vomiting Genitourinary: reports: no symptoms reported Musculoskeletal: denies: back pain, neck pain Integumentary: reports: no symptoms reported Neurological: denies: dizziness/vertigo, headache/migraines Psychiatric: reports: no symptoms reported Endocrine: reports: no symptoms reported Hematologic/Lymphatic: reports: no symptoms reported Allergic/Immunologic: reports: no symptoms reported All Other Systems: Reviewed and Negative Past History - Adult - PAST MEDICAL HISTORY-ADULT Review of Records: reports: Old Records Reviewed, Nursing Assessment Review Major Childhood Illnesses: reports: denies history Cardiovascular: reports: cardiac disease, CAD, CHF, HTN, MT Respiratory: reports: denies history Gastrointestinal: reports: denies history Genitourinary: reports: denies history Musculoskeletal: reports: denies history Neurological: reports: denies history Psychiatric: reports: denies history Endocrine/Immune: reports: denies history Other Conditions: reports: denies history - PRIOR SURGERIES/PROCEDURES Surgical/Procedure History: reports: orthopedic (extremity) - IMMUNIZATION STATUS Childhood Immunizations: See Nurse Assessment Flu Vaccine: See Nurse Assessment - FAMILY HISTORY Family History: reviewed, not pertinent - SOCIAL HISTORY Smoking: cigarettes, less than 1 pack/day, other (vapes) Substance Use: marijuana, cocaine Living Situation: family Physical Exam-General - PHYSICAL EXAM-ADULT Initial Vital Signs Reviewed: Yes - CONSTITUTIONAL General Appearance: appears well, alert, no apparent distress - EYES Eyes: PERRL/EOMI, pink conjunctivae - HEAD, EARS, NOSE, MOUTH & THROAT HENMT: moist mucous membranes, normal ENT inspection - NECK Neck: non-tender, full range of motion, supple, normal inspection - RESPIRATORY Respiratory: lungs clear, normal breath sounds, no pleuratic chest pain, no respiratory distress, no accessory muscle use - CARDIOVASCULAR Cardiovascular: normal peripheral pulses, tachycardia - GASTROINTESTINAL (ABDOMEN) Abdominal Exam: soft, tenderness (mild epigastric). negative: guarding, rebound - MUSCULOSKELETAL Back Exam: normal inspection, no CVA tenderness, no vertebral tenderness Extremity: normal range of motion, non-tender, normal gait, swelling - SKIN Integumentary: normal color, normal turgor, warm/dry - NEUROLOGIC Neurologic: grossly normal, no motor/sensory deficits - PSYCHIATRIC Psych/Mental Status: normal mood/affect, normal thought content, normal thought process, oriented x 3 Progress - PLAN OF CARE/RESULTS Progress/Plan/Lab Results: Vital Signs - 8 hr 03/21/19 23:01 03/21/19 23:16 Pulse Rate 113 H 115 H Respiratory Rate 14 19 Blood Pressure 139/107 135/101 O2 Sat by Pulse Oximetry 96 96 Laboratory Results - last 24 hr 03/21/19 03/21/19 03/21/19 19:23 19:23 19:23 WBC 9.47 RBC 5.56 Hgb 15.7 Hct 48.5 MCV 87.2 MCH 28.2 MCHC 32.4 L RDW Std Deviation 13.2 Plt Count 277 MPV 10.6 H Immature Gran % (Auto) 0.0 Neut % (Auto) 57.3 Lymph % (Auto) 34.5 Harney % (Auto) 7.0 Eos % (Auto) 0.8 Baso % (Auto) 0.4 Immature Gran # (Auto) 0.00 Neut # (Auto) 5.42 Lymph # (Auto) 3.27 Harney # (Auto) 0.66 H Eos # (Auto) 0.08 Baso # (Auto) 0.04 PT INR PTT (Actin FS) Sodium 143 Potassium 4.3 Chloride 103 Carbon Dioxide 24 L Anion Gap 16 BUN 19 Creatinine 1.5 H Estimated GFR/1.73 m2 > 60 BUN/Creatinine Ratio 13 Glucose 107 H Calculated Osmolality 288 Calcium 8.7 L Total Bilirubin 3.31 H AST 17 ALT 14 Alkaline Phosphatase 83 Creatine Kinase 105 Troponin T Zbv-[id number]-Rhdqtnmxaww Pept 9354 H Total Protein 5.9 L Albumin 3.9 Globulin 2.0 Albumin/Globulin Ratio 2.0 Lipase Urine Opiates Screen Ur Oxycodone Screen Ur Methadone, Qual Ur Barbiturates Screen Ur Phencyclidine Scrn Ur Amphetamines Screen U Benzodiazepines Scrn Urine Cocaine Screen U Cannabinoids Screen 03/21/19 03/21/19 03/21/19 19:23 19:23 19:23 WBC RBC Hgb Hct MCV MCH MCHC RDW Std Deviation Plt Count MPV Immature Gran % (Auto) Neut % (Auto) Lymph % (Auto) Harney % (Auto) Eos % (Auto) Baso % (Auto) Immature Gran # (Auto) Neut # (Auto) Lymph # (Auto) Harney # (Auto) Eos # (Auto) Baso # (Auto) PT 17.1 H INR 1.37 PTT (Actin FS) 31.6 Sodium Potassium Chloride Carbon Dioxide Anion Gap BUN Creatinine Estimated GFR/1.73 m2 BUN/Creatinine Ratio Glucose Calculated Osmolality Calcium Total Bilirubin AST ALT Alkaline Phosphatase Creatine Kinase Troponin T < 0.010 Ndu-H-Ynwppthjcku Pept Total Protein Albumin Globulin Albumin/Globulin Ratio Lipase 22 Urine Opiates Screen Ur Oxycodone Screen Ur Methadone, Qual Ur Barbiturates Screen Ur Phencyclidine Scrn Ur Amphetamines Screen U Benzodiazepines Scrn Urine Cocaine Screen U Cannabinoids Screen 03/21/19 03/21/19 20:47 21:39 WBC RBC Hgb Hct MCV MCH MCHC RDW Std Deviation Plt Count MPV Immature Gran % (Auto) Neut % (Auto) Lymph % (Auto) Harney % (Auto) Eos % (Auto) Baso % (Auto) Immature Gran # (Auto) Neut # (Auto) Lymph # (Auto) Harney # (Auto) Eos # (Auto) Baso # (Auto) PT INR PTT (Actin FS) Sodium Potassium Chloride Carbon Dioxide Anion Gap BUN Creatinine Estimated GFR/1.73 m2 BUN/Creatinine Ratio Glucose Calculated Osmolality Calcium Total Bilirubin AST ALT Alkaline Phosphatase Creatine Kinase Troponin T < 0.010 Pvx-V-Vrfrbcwaexs Pept Total Protein Albumin Globulin Albumin/Globulin Ratio Lipase Urine Opiates Screen NONE DETECTED Ur Oxycodone Screen NONE DETECTED Ur Methadone, Qual NONE DETECTED Ur Barbiturates Screen NONE DETECTED Ur Phencyclidine Scrn NONE DETECTED Ur Amphetamines Screen NONE DETECTED U Benzodiazepines Scrn NONE DETECTED Urine Cocaine Screen NONE DETECTED U Cannabinoids Screen PRESUMPTIVE POSITIVE A Orders Category Date Time Status Admit - [facility] Routine AdmDCTranf 03/21/19 23:30 Active Activity - Up with Assistance ORDERED Care 03/21/19 23:30 Active Apply Mechanical Device [QM] ORDERED Care 03/21/19 23:30 Active Cardiac Monitoring DIRECTED Care 03/21/19 19:06 Active Intake and Output-Strict ORDERED Care 03/21/19 23:30 Active Oxygen Therapy- ED Nursing DIRECTED Care 03/21/19 19:06 Active Saline Loc NOW Care 03/21/19 19:06 Active Vital Signs Order Q 8-HR ASSESS Care 03/21/19 23:30 Active Z-Document. for Tele Applied ORDERED Care 03/21/19 23:30 Active Heart Healthy Diet Diet 03/21/19 23:30 Active CHEST-2 VIEWS [RAD] Stat Exams 03/21/19 19:[address] ABD/PELVIS W/IV CONT ONLY [CT] Stat Exams 03/21/19 21:11 Taken BASIC METABOLIC PANEL [CHEM] Routine Lab 03/22/19 06:00 Ordered CBC WITH DIFF [HEME] Routine Lab 03/22/19 06:00 Ordered CBC WITH ELECTRONIC DIFF [HEME] Stat Lab 03/21/19 19:23 Completed CK PROFILE [SP CHEM] Stat Lab 03/21/19 19:23 Completed COMPREHENSIVE METABOLIC PANEL [CHEM] Stat Lab 03/21/19 19:23 Completed LIPASE [CHEM] Stat Lab 03/21/19 19:23 Completed PRO B-NATRIURETIC PEPTIDE Stat Lab 03/21/19 19:23 Completed PROTIME WITH INR [COAG] Stat Lab 03/21/19 19:23 Completed PTT [COAG] Stat Lab 03/21/19 19:23 Completed TROPONIN T Stat Lab 03/21/19 19:23 Completed TROPONIN T Stat Lab 03/21/19 21:39 Completed URINE DRUG SCREEN Stat Lab 03/21/19 20:47 Completed Acetaminophen [Tylenol] Med 03/21/19 23:30 Active 650 mg PO Q6H PRN PRN Digoxin [Lanoxin] Med 03/22/19 09:00 Active 125 microgm IV DAILY Digoxin [Lanoxin] Med 03/21/19 23:30 Discontinued 250 microgm IV NOW ONE Furosemide [Lasix] Med 03/22/19 09:00 Active 40 mg IV Q12H Furosemide [Lasix] Med 03/21/19 20:46 Discontinued 60 mg IV NOW ONE Losartan [Cozaar] Med 03/22/19 09:00 Active 50 mg PO DAILY Ondansetron [Zofran] Med 03/21/19 23:30 Active 4 mg IV Q4H PRN PRN Piperacillin/Tazobactam [Zosyn] 3.375 gm Med 03/21/19 22:45 Discontinued 0.9% Sodium Chloride Inj [Ns] 50 ml IV NOW Piperacillin/Tazobactam [Zosyn] 3.375 gm Med 03/21/19 23:30 Active 0.9% Sodium Chloride Inj [Ns] 50 ml IV Q6H Potassium Chloride E.r. [Klor-Con] Med 03/22/19 09:00 Active 10 meq PO DAILY Spironolactone [Aldactone] Med 03/22/19 09:00 Active 25 mg PO DAILY Telemetry [OM.EQ] Routine Oth 03/21/19 23:30 Active EKG [EKG] Stat Ther 03/21/19 19:06 Draft Transfer/Admit Order [TRANSFER] Routine Transfer 03/21/19 23:02 Completed Result Diagrams: 03/21/19 19:23 03/21/19 19:23 - EKG 1 Time of EKG reading by physician:: 19:08 EKG Read and Signed by:: Kameron Bridges EKG Interpretation (*Must complete 3 of following elements*): Abnormal Rate: 120 Rhythm: Sinus Tach Comments: left atrial enlargement, St & T wave abnormality - XRAY 1 XRAY Study: Chest Impression: Normal ( EXAM: CHEST-2 VIEWS HISTORY: sob TECHNIQUE: Two views COMPARISON: 03/15/2019 FINDINGS: The lungs are well expanded. The heart is enlarged. The vessels are not distended. There are no infiltrates. No pleural effusions. IMPRESSION: Cardiomegaly Electronically signed by Marc King 03/21/2019 7:54 PM 03/21/191953 Interpreting Physician: Marc King MD Dictated Date/Time: 03/21/191952 cc: Kameron Bridges MD; Cecil León), See EMR Report - CT/MRI 1 CT Study: Abdomen, Pelvis Impression: Abnormal (Increased gallbladder wall thickening with new pericholecystic infiltration. Consideration s would include choleystitis. Conseider RUQ ultrasound for further evaluation. Mild CHF), See EMR Report - CONSULTS/PCP/HOSPITALIST Notification #1 *Consult/PCP/Hospitalist*: General Surgery- Dr Pineda Time Discussed: 22:44 Reason/Comments: HPI with Acute care solution Consult Disposition: other (Recommends IV Zoysn and hospitalist admission) #2 Consult: Hospitalist- Dr Siddiqi Time Discussed: 22:46 Reason/Comments: admission Consult Disposition: Will see in ED (accepts) Departure - Departure Date of Disposition Decision: 03/21/19 Time of Disposition Decision: 22:47 DIAGNOSIS: Heart failure Qualifiers: Heart failure type: unspecified Heart failure chronicity: acute Qualified Code(s): I50.9 - Heart failure, unspecified Abdominal pain Qualifiers: Abdominal location: epigastric Qualified Code(s): R10.13 - Epigastric pain Disposition: ADMITTED INPATIENT 09 Certified Medical Emergency: Emergent Condition: Serious - Critical Care Note This patient required my direct & personal management of CC.: No Attestation - Physician/ JUD Attestation Patient care was provided by Advanced Practice Provider:: No The physician spent face to face time with patient:: Yes Advanced Practice Provider documentation review:: Supervising physician onsite and consulted in the evaluation and care of this patient. The physician did have a face to face encounter with the patient. This chart was documented by the indicated scribe, (Magdy Gonsalez Scribe) and accurately reflects the services I performed and decisions made by me, Kameron Bridges MD, as attested by the provider's signature.
--- NOTE | 2019-03-22 07:12 | Diag Imaging Result Doc PS360 ---
CT ABD/PELVIS W/IV CONT ONLY - 03/21/2019 INDICATION: abd pain COMPARISON: Chest CT 03/11/2019 FINDINGS: There is cardiomegaly. There is some mild interstitial pulmonary edema in the lung bases. The gallbladder is collapsed with nonspecific wall thickening. The liver, pancreas, spleen, and adrenals are normal. 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 No complication. The left kidney is normal. No bowel obstruction or inflammation. Normal appendix. Urinary bladder, prostate, and rectum are normal. There is dependent body wall edema. Bones are intact and well mineralized. IMPRESSION: 1. Congestive heart failure. 2. Collapsed gallbladder with nonspecific wall thickening. This exam was performed using automated exposure control, adjustment of mA or kV according to patient size, and/or use of iterative reconstruction technique Electronically signed by Francesco Capps 03/22/2019 7:10 AM
[2019-03-22 08:16] LABS: BASO# 0.04 X1000 (0.0-0.2); BASO% 0.5 % (0.0-0.8); EOS# 0.07 X1000 (0.0-0.7); EOS% 0.8 % (0.0-10.0); HEMATOCRIT 42.4 % (42.0-52.0); HEMOGLOBIN 13.9 g/dL (14.0-18.0); IMM GRAN# 0.02 X1000 (0.0-0.04); IMM GRAN% 0.2 % (0.0-0.5); LYMPH# 2.47 X1000 (1.2-3.4); LYMPH% 29.3 % (20.5-51.1); MCH 28.8 PG (27-31); MCHC 32.8 g/dL (33-37); MCV 87.8 FL (81-99); MONO# 0.68 X1000 (0.11-0.59); MONO% 8.1 % (1.7-9.3); MPV 10.6 FL (7.4-10.4); NEUT# 5.14 X1000 (1.4-6.5); NEUT% 61.1 % (42.2-75.2); PLT 230 X1000 (130-400); RBC 4.83 XMIL (4.7-6.1); WBC 8.42 X1000 (4.8-10.8)
[2019-03-22 08:41] LABS: AGAP 15; BUN 16 mg/dL (8-22); CALCIUM 8.7 mg/dL (8.8-10.2); CHLORIDE 104 mmol/L (98-107); COSMO 286; CREATININE 1.4 mg/dL (0.7-1.2); ESTIMATED GFR > 60; GLUCOSE 95 mg/dL (70-104); POTASSIUM 3.6 mmol/L (3.5-5.1); SODIUM 143 mmol/L (136-145); TCO2 24 mmol/L (25-35)
[2019-03-22] MEDS: ALDACTONE PO SCH (10:25)
[2019-03-22] MEDS: COZAAR PO SCH (10:25)
[2019-03-22] MEDS: KLOR-CON PO SCH (10:25)
[2019-03-22] MEDS: LASIX IV SCH ×2 (10:25→21:33)
[2019-03-22] MEDS: LANOXIN IV SCH (10:45)
--- NOTE | 2019-03-22 15:04 | Diag Imaging Result Doc PS360 ---
EXAM: US ABDOMEN-COMPLETE INDICATION: elevated bilirubin COMPARISON: None. FINDINGS: No gallstones are identified. The gallbladder wall appears somewhat thickened measuring up to 4.9 mm in thickness. The common bile duct is normal in diameter. Sonographic Cedeño's sign was reported to be negative. The liver is grossly unremarkable. Portal venous flow is hepatopetal. The visualized pancreas is unremarkable. The aorta and IVC are grossly unremarkable. The spleen is unremarkable. 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 The kidneys are essentially unremarkable, otherwise. IMPRESSION: Somewhat thickened gallbladder wall, which was also seen on a recent CT. However, no gallstones are identified. The unit aide tech reported a negative sonographic Cedeño sign. Please correlate clinically. Electronically signed by James Loera 03/22/2019 3:01 PM
[2019-03-23] MEDS: ZOSYN 3.375 GM in NS 50 ML IV SCH ×4 (03:53→20:14)
[2019-03-23] MEDS: LASIX IV SCH ×2 (06:25→17:12)
[2019-03-23] MEDS: COZAAR PO SCH (08:02)
[2019-03-23] MEDS: ALDACTONE PO SCH (08:02)
[2019-03-23] MEDS: KLOR-CON PO SCH (08:02)
[2019-03-23] MEDS: LANOXIN IV SCH (08:03)
--- NOTE | 2019-03-23 16:01 | PROGRESS NOTE ---
DATE: 03/23/2019 He is followed by JESICA Day. This is a 43-year-old who came in with upper abdominal pain, 2-day history of orthopnea. He has a history of cocaine abuse and marijuana abuse, hypertension, systolic heart failure ejection fraction is 15 to 20 percent. Came in complaining mainly of epigastric pain which radiated to his chest cramping pain that eases when he would drink water, got worse with movement. He denies any fever or chills. Thought he was constipated, he had defecated twice dark brownish well-formed stools. No bleeding noted and so was admitted with cholecystitis and mild acute on chronic congestive heart failure. He had an abdominal ultrasound done on 03/21 somewhat thickened gallbladder wall. No gallstones. He had a positive I think Cedeño sign. We diuresed him some and were considering for surgery. His breathing was better. EXAM: Today temperature 98.8 degrees, pulse 104, respirations 15, blood pressure 123/86. Pupils are equal and round.Lungs: Clear in all lung rodriguez. Cardiovascular: Regular rhythm and rate without murmur or S3. Urine output was 2800 mL. Still some tenderness in abdomen. Abdominal pelvic CT showed congestive heart failure, collapsed gallbladder, nonspecific wall thickening so patient is feeling better. He is on Lanoxin 125 mcg IV daily, Lasix 40 mg IV q.12, spironolactone 25 mg a day and Zosyn 3.375 g IV q.6 hours. Reviewed lab from yesterday electrolytes, serum creatinine is 1.4. cc: Anam Morfin MD
[2019-03-24] MEDS: ZOSYN 3.375 GM in NS 50 ML IV SCH ×2 (03:39→08:02)
[2019-03-24] MEDS: LASIX IV SCH (05:52)
[2019-03-24] MEDS: KLOR-CON PO SCH (08:02)
[2019-03-24] MEDS: ALDACTONE PO SCH (08:02)
[2019-03-24] MEDS: LANOXIN IV SCH (08:02)
[2019-03-24] MEDS: COZAAR PO SCH (08:02)
[2019-03-24 08:23] VITALS: BP 125/91
--- NOTE | 2019-03-24 09:57 | DISCHARGE SUMMARY ---
ADMISSION DATE: 03/21/2019 DISCHARGE DATE: 03/24/2019 HOSPITAL COURSE: He is followed by JESICA Day. He is a 43-year-old with a 1-day history of upper abdominal pain and 2-day history of orthopnea. He has a past medical history of cocaine abuse and marijuana abuse, hypertension, systolic heart failure with ejection fraction 15 to 20 percent, who comes in on 03/21/2019 complaining of primary epigastric pain that radiates to his chest. He says it is a cramping pain. He only drinks water. It He gets worse with movement. He denies any fever, chills. Initially, he thought he was constipated. He had 2 bowel movements and well formed stools. No bleeding. Denied any complaints. He since has vomited about 4 times a day. No blood. No coffee-grounds. Has intermittent nausea. Also complains of onset of symptoms 2 days ago of increasing orthopnea, paroxysmal nocturnal dyspnea, leg swelling. Seen at [facility] and given Lasix; initially decreased the leg swelling. Over the last 3 days, edema has gotten worse. Over , he drank 3 to 4 cans of soda and a can of beer. He smokes marijuana daily. ADMISSION DIAGNOSES: 1. Questionable cholecystitis. 2. Acute on chronic systolic heart failure. 3. Hypertensive heart disease with heart failure. 4. Marijuana use. Abdominal ultrasound done on 03/22: Somewhat thickened gallbladder, which was also seen on recent CT scan. No gallstones identified. The abdominal pain resolved and really had no trouble with eating. We diuresed him and he seemed to do well. Telemetry strips showed that he remained in sinus rhythm, and so felt he was ready to go home on 03/24/2019. Breathing better. Bowels are moving. DISCHARGE MEDICATIONS: He will be on Lasix 40 mg p.o. twice a day, Cozaar 50 mg a day, and Aldactone 25 mg a day. We will give him Klor-Con 10 mEq daily, Norvasc 5 mg a day, Coreg 3.125 mg twice a day, and his Cozaar 50 mg a day. cc: Anam Morfin MD
== END 2019-03-24 11:45 | disposition home or self-care (01) | DRG 293 ==
LOC: ED 19:03 → SUATTDRO 23:19 → EDIPHOLD 23:19 → 2N 03-22 09:23
PROVIDERS: ATTEND Emergency Medicine

== ENCOUNTER 2019-06-29 18:55 | Inpatient (IN) ==
[2019-06-29] MEDS ORDERED: ASPIRIN PO ONE (19:00)
[2019-06-29] MEDS ORDERED: MORPHINE IV ONE (19:18)
--- NOTE | 2019-06-29 19:27 | PROVIDER DOCUMENTATION ---
HPI-Chest Pain - General Chief Complaint: Chest Pain Stated Complaint: CHEST PAIN Time Seen by Provider: 06/29/19 19:01 Source: patient Allergies/Adverse Reactions: Patient Allergies Allergy/AdvReac Type Severity Reaction Status Date / Time No Known Allergies Allergy Verified 06/29/19 19:13 Home Medications: Home Medication List Medication Instructions Recorded Confirmed Last Taken Type Amlodipine [Norvasc] 5 mg PO DAILY 30 Days #30 tab 03/24/19 06/16/19 06/02/19 Rx Furosemide [Lasix] 40 mg PO DAILY 30 Days #30 tab 03/24/19 06/16/19 06/02/19 Rx Potassium Chloride E.r. [Klor-Con] 10 meq PO DAILY tab 03/24/19 06/16/19 06/02/19 Rx Spironolactone [Aldactone] 25 mg PO DAILY 30 Days #30 tab 03/24/19 06/16/19 06/02/19 Rx - History of Present Illness-CP Nature of Presenting Problem: 43 yom with PMH of [place], CHF, HTN, cardiomogaly presents with c/o CP that occurred while eating dinner, is pressure like, non radiating, associated with SOB, reports he has not been taking his lasix and spirolcatone x 3 days because he was unsure if he was supposed to after seeing systems auditor. c/o pain 12/29 initial exam Location: reports: substernal Chest Pain Radiation: reports: no radiation Quality of Pain: reports: pressure Severity in ED: severe Onset/Duration: just prior to arrival Timing: still present Context/Activities at Onset: reports: eating Modifying Factors: improves with: nothing Associated Symptoms: reports: shortness of breath (over the last 2 days) Nitro Today/Relief: no nitro taken today Aspirin Treatment Today: 325 mg x 1, provided by ED Prior Chest Pain/Cardiac Workup: reports: cardiac cath, heart attack Similar Symptoms Previously?: Yes Recently Seen Here or By Another Healthcare Provider: No Review of Systems - Adult - REVIEW OF SYSTEMS - ADULT Constitutional: reports: no symptoms reported. denies: see HPI, chills, fever, fatique, night sweats, weight gain, weight loss, other Eyes: reports: no symptoms reported. denies: see HPI, discharge, dry eyes, decreased vision, blurred vision, double vision, eye pain, redness, other Ears, Nose, Mouth & Throat: reports: no symptoms reported. denies: see HPI, ear discharge, ear pain, hearing loss, tinnitus, epistaxis, sinus problem, nose pain, loose teeth, mouth/dental pain, mouth swelling, hoarseness, throat pain, throat swelling, other Cardiovascular: reports: see HPI, chest pain, orthopnea, PND. denies: no sympto ms reported, edema, heart murmur, irregular heart rate, palpitations, poor circulation, syncope, other Respiratory: reports: see HPI, shortness of breath. denies: no symptoms reported, chronic cough, cough, dyspnea on exertion, excessive sputum prod uction, hemoptysis, pleurisy, wheezing, other Gastrointestinal: reports: no symptoms reported. denies: see HPI, abdominal pain, hematemesis, constipation, diarrhea, difficulty swallowing, frequent heartburn, nausea, poor appetite, rectal bleeding, vomiting, other Genitourinary: reports: no symptoms reported. denies: see HPI, dysuria, discharge, frequency, flank pain, frequent UTI's, hematuria, hesitency, incontinence, urinary retention, urgency, other Musculoskeletal: reports: no symptoms reported. denies: see HPI, bone pain, back pain, frequent leg cramps, joint pain, joint swelling, muscle aches, muscle weakness, neck pain, other Integumentary: reports: no symptoms reported. denies: see HPI, hives, hair loss, itching, mole changes, nail changes, rash, skin sores/ulcer, skin thickening, other Neurological: reports: no symptoms reported. denies: see HPI, ataxia, dizziness/vertigo, headache/migraines, loss of balance, numbness, paresthesia, seizure, slurred speech, syncope, tremors, other Psychiatric: reports: no symptoms reported. denies: see HPI, anxiety, anti- depressant use, alcohol/drug dependence, depression, emotional problems, insomnia, panic attacks, suicidal thoughts, other Endocrine: reports: no symptoms reported. denies: see HPI, change in skin pigment, excessive sweating, goiter, cold intolerance, heat intolerance, increased hunger, increased thirst, polyuria, other Hematologic/Lymphatic: reports: no symptoms reported. denies: see HPI, blood clots, easy bruising, low blood count, lymphedema, prolonged bleeding, swollen lymph nodes, transfusions, other Allergic/Immunologic: reports: no symptoms reported. denies: see HPI, allergic reactions, allergic rhinitis, asthma, eczema, food allergy, frequent infections, hay fever, hives, positive PPD, urticaria, other Past History - Adult - PAST MEDICAL HISTORY-ADULT Review of Records: reports: Old Records Reviewed, Nursing Assessment Review, Social history reviewed & non-contributory. Major Childhood Illnesses: reports: denies history Cardiovascular: reports: cardiac disease, CAD, CHF, HTN, [place] Respiratory: reports: denies history Gastrointestinal: reports: denies history Obstetrical/Gynecological: reports: denies history Genitourinary: reports: denies history Musculoskeletal: reports: denies history Neurological: reports: denies history Psychiatric: reports: denies history Endocrine/Immune: reports: denies history Other Conditions: reports: denies history - PRIOR SURGERIES/PROCEDURES Surgical/Procedure History: reports: orthopedic (extremity) - IMMUNIZATION STATUS Childhood Immunizations: See Nurse Assessment Flu Vaccine: See Nurse Assessment - FAMILY HISTORY Family History: reviewed, not pertinent Physical Exam-General - PHYSICAL EXAM-ADULT Initial Vital Signs Reviewed: Yes - CONSTITUTIONAL General Appearance: alert, mild distress - EYES Eyes: PERRL/EOMI, pink conjunctivae - HEAD, EARS, NOSE, MOUTH & THROAT HENMT: normocephalic/atraumatic, moist mucous membranes, normal ENT inspection - NECK Neck: non-tender, full range of motion, supple - RESPIRATORY Respiratory: chest non-tender, normal breath sounds, no pleuratic chest pain, no respiratory distress, no accessory muscle use, crackles - CARDIOVASCULAR Cardiovascular: normal peripheral pulses, tachycardia (118). negative: no edema (BLE +2) - GASTROINTESTINAL (ABDOMEN) Abdominal Exam: normal bowel sounds, non tender, soft - LYMPHATIC Lymphatic: no adenopathy - MUSCULOSKELETAL Back Exam: normal inspection, no CVA tenderness, no vertebral tenderness Extremity: normal range of motion, non-tender, normal gait, normal inspection, no pedal edema, no calf tenderness Peripheral Pulses: radial (R): 2+, radial (L): 2+ - SKIN Integumentary: normal color, normal turgor, warm/dry - NEUROLOGIC Neurologic: grossly normal. negative: aphasia, facial droop, focal weakness - PSYCHIATRIC Psych/Mental Status: normal mood/affect, oriented x 3 - HEART Score HEART Score: History: Moderately Suspicious HEART Score: ECG: Non-Specific Repolarization Disturbance/LBBB/PM HEART Score: Age: < or = 45 Years HEART Score: Risk Factors for Atherosclerotic Disease: > or = 3 Risk Factors or History of Atherosclerotic Disease HEART Score: Troponin: < or = Normal Limit Total HEART Score:: 4 Progress - PLAN OF CARE/RESULTS Progress/Plan/Lab Results: Vital Signs - 8 hr 06/29/19 19:08 Temperature 97.5 F L Pulse Rate 108 H Respiratory Rate 18 Blood Pressure 118/88 O2 Sat by Pulse Oximetry 100 Laboratory Results - last 24 hr 06/29/19 06/29/19 06/29/19 19:33 19:33 19:33 WBC RBC Hgb Hct MCV MCH MCHC RDW Std Deviation Plt Count MPV Immature Gran % (Auto) Neut % (Auto) Lymph % (Auto) [place] % (Auto) Eos % (Auto) Baso % (Auto) Immature Gran # (Auto) Neut # (Auto) Lymph # (Auto) [place] # (Auto) Eos # (Auto) Baso # (Auto) PT 15.6 INR 1.18 PTT (Actin FS) 30.2 D-Dimer, Quantitative Sodium Potassium Chloride Carbon Dioxide Anion Gap BUN Creatinine Estimated GFR/1.73 m2 BUN/Creatinine Ratio Glucose Calculated Osmolality Calcium Total Bilirubin AST ALT Alkaline Phosphatase Creatine Kinase 73 Troponin T High Sens 14 Gan-C-Vvlmditlapj Pept Total Protein Albumin Globulin Albumin/Globulin Ratio 06/29/19 06/29/19 06/29/19 19:33 19:33 19:33 WBC 8.23 RBC 4.67 L Hgb 13.5 L Hct 41.8 L MCV 89.5 MCH 28.9 MCHC 32.3 L RDW Std Deviation 13.0 Plt Count 237 MPV 10.8 H Immature Gran % (Auto) 0.0 Neut % (Auto) 58.4 Lymph % (Auto) 33.4 [place] % (Auto) 7.0 Eos % (Auto) 1.0 Baso % (Auto) 0.2 Immature Gran # (Auto) 0.00 Neut # (Auto) 4.80 Lymph # (Auto) 2.75 [place] # (Auto) 0.58 Eos # (Auto) 0.08 Baso # (Auto) 0.02 PT INR PTT (Actin FS) D-Dimer, Quantitative 0.70 H Sodium Potassium Chloride Carbon Dioxide Anion Gap BUN Creatinine Estimated GFR/1.73 m2 BUN/Creatinine Ratio Glucose Calculated Osmolality Calcium Total Bilirubin AST ALT Alkaline Phosphatase Creatine Kinase Troponin T High Sens Pxk-J-Bhgkzeqdvce Pept 16 Total Protein Albumin Globulin Albumin/Globulin Ratio 06/29/19 03 19:42 22:05 WBC RBC Hgb Hct MCV MCH MCHC RDW Std Deviation Plt Count MPV Immature Gran % (Auto) Neut % (Auto) Lymph % (Auto) [place] % (Auto) Eos % (Auto) Baso % (Auto) Immature Gran # (Auto) Neut # (Auto) Lymph # (Auto) [place] # (Auto) Eos # (Auto) Baso # (Auto) PT INR PTT (Actin FS) D-Dimer, Quantitative Sodium 141 Potassium 3.8 Chloride 103 Carbon Dioxide 24 L Anion Gap 15 BUN 13 Creatinine 0.6 L Estimated GFR/1.73 m2 > 60 BUN/Creatinine Ratio 22 Glucose 268 H Calculated Osmolality 291 Calcium 9.5 Total Bilirubin 0.20 AST 31 ALT 69 H Alkaline Phosphatase 236 H Creatine Kinase Troponin T High Sens 15 Ojp-V-Wfnyrmwtvbd Pept Total Protein 7.4 Albumin 4.2 Globulin 3.0 Albumin/Globulin Ratio 1.0 Orders Category Date Time Status Cardiac Monitoring DIRECTED Care 06/29/19 19:00 Active Saline Loc NOW Care 06/29/19 19:00 Active CTA [CT ANGIOGRM PULMONARY ARTERIES] [CT] Stat Exams 06/29/19 22:49 Taken cxr [CHEST-PORTABLE] [RAD] Stat Exams 06/29/19 19:01 Completed CBC WITH ELECTRONIC DIFF [HEME] Stat Lab 06/29/19 19:33 Completed CK PROFILE [SP CHEM] Stat Lab 06/29/19 19:33 Completed COMPREHENSIVE METABOLIC PANEL [CHEM] Stat Lab 06/29/19 19:42 Completed D-DIMER [COAG] Stat Lab 06/29/19 19:33 Completed PROTIME WITH INR [COAG] Stat Lab 06/29/19 19:33 Completed PTT [COAG] Stat Lab 06/29/19 19:33 Completed TROPONIN T HIGH SENSITIVITY Stat Lab 06/29/19 19:33 Completed TROPONIN T HIGH SENSITIVITY Stat Lab 06/29/19 22:05 Completed bnp [PRO B-NATRIURETIC PEPTIDE] Stat Lab 06/29/19 19:33 Completed Aspirin Med 06/29/19 19:00 Discontinued 325 mg PO NOW ONE Enoxaparin 1 mg/kg [Lovenox 1 mg/kg] Med 06/29/19 23:33 Discontinued 1 each SUBQ NOW ONE Furosemide [Lasix] Med 06/29/19 23:33 Discontinued 40 mg IV NOW ONE Lido/Carr Alk/Al&mg Hydrox [G.i. Cocktail] Med 06/29/19 19:36 Discontinued 30 ml PO NOW ONE Morphine Med 06/29/19 19:18 Discontinued 2 mg IV NOW ONE EKG [EKG] Stat Ther 06/29/19 19:01 Ordered EKG [EKG] Stat Ther 06/29/19 21:45 Ordered Result Diagrams: 06/29/19 19:33 06/29/19 19:42 - REASSESSMENT Reassessment #1 Time Reassessed: 20:05 Status: improving (pain in chest resolved with morphine) - EKG 1 Time of EKG reading by physician:: 19:04 EKG Read and Signed by:: Rick Polk EKG Interpretation (*Must complete 3 of following elements*): Abnormal Rate: 118 Rhythm: [facility] [place]: normal QRS: other (LAE) [place] Interval: normal ST Wave: non-specific ST changes Prior EKG Comparison: unchanged from prior - XRAY 1 XRAY Study: Chest Impression: See EMR Report (EXAM: CHEST-PORTABLE INDICATION: CP TECHNIQUE: One view COMPARISON: 06/16/2019 FINDINGS: There is a stable focal nodular opacity in the left midlung zone that is nonspecific but could represent a small scar. There is no discrete pleural fluid collection or pneumothorax. The cardiac silhouette is prominent but stable. Central vasculature is unremarkable. IMPRESSION: Stable chest. No definite acute pathology by plain radiograph. Electronically signed by James Loera 06/29/2019 8:42 PM 06/29/192041 Interpreting Physician: James Loera MD Dictated Date/Time: 06/29/192038 cc: Paris Humphrey; None,PCP) - CONSULTS/PCP/HOSPITALIST Notification #1 *Consult/PCP/Hospitalist*: Dr. Mclaughlin Time Discussed: 22:30 Consult Disposition: Admit (D-dimer now, and CTA if + before admit, trop q4h x 4) Departure - Departure Date of Disposition Decision: 06/29/19 Time of Disposition Decision: 23:42 DIAGNOSIS: CHF exacerbation, Shortness of breath Disposition: ADMITTED INPATIENT 09 Certified Medical Emergency: Emergent Condition: Stable Referrals and Follow-Ups: None,PCP [Primary Care Provider] - - Critical Care Note This patient required my direct & personal management of CC.: No Attestation - Physician/ JUD Attestation Patient care was provided by Advanced Practice Provider:: Yes Advanced Practice Provider:: Paris Humphrey Advanced Practice Provider documentation review:: The Mid-level provider documentation, treatment plan and medical decision making was reviewed by the physician who agrees with all treatment and medical decision making by the MLP. The physician spent face to face time with patient:: No Advanced Practice Provider documentation review:: Supervising physician onsite and consulted in the evaluation and care of this patient. The physician did not have a face to face encounter with the patient.
[2019-06-29] MEDS ORDERED: G.I. COCKTAIL PO ONE (19:36)
[2019-06-29 19:56] LABS: BASO# 0.02 X1000 (0.0-0.2); BASO% 0.2 % (0.0-0.8); EOS# 0.08 X1000 (0.0-0.7); HEMATOCRIT 41.8 % (42.0-52.0); HEMOGLOBIN 13.5 g/dL (14.0-18.0); LYMPH# 2.75 X1000 (1.2-3.4); LYMPH% 33.4 % (20.5-51.1); MCH 28.9 PG (27-31); MCHC 32.3 g/dL (33-37); MCV 89.5 FL (81-99); MONO# 0.58 X1000 (0.11-0.59); MPV 10.8 FL (7.4-10.4); NEUT% 58.4 % (42.2-75.2); PLT 237 X1000 (130-400); RBC 4.67 XMIL (4.7-6.1); WBC 8.23 X1000 (4.8-10.8)
[2019-06-29 20:00] LABS: INR 1.18; PROTIME 15.6 Seconds (11.0-16.0); PTT 30.2 Seconds (22.3-41.8)
[2019-06-29 20:13] LABS: AGAP 15; ALBUMIN 4.2 g/dL (3.5-5.0); ALKALINE PHOSPHATASE 236 U/L (32-122); BUN 13 mg/dL (8-22); CALCIUM 9.5 mg/dL (8.8-10.2); CHLORIDE 103 mmol/L (98-107); COSMO 291; CREATININE 0.6 mg/dL (0.7-1.2); ESTIMATED GFR > 60; GLUCOSE 268 mg/dL (70-104); GOT 31 U/L (10-34); GPT 69 U/L (10-44); POTASSIUM 3.8 mmol/L (3.5-5.1); SODIUM 141 mmol/L (136-145); TCO2 24 mmol/L (25-35); TOTAL PROTEIN 7.4 g/dL (6.3-8.3)
--- NOTE | 2019-06-29 20:44 | Diag Imaging Result Doc PS360 ---
EXAM: CHEST-PORTABLE INDICATION: CP TECHNIQUE: One view COMPARISON: 06/16/2019 FINDINGS: There is a stable focal nodular opacity in the left midlung zone that is nonspecific but could represent a small scar. There is no discrete pleural fluid collection or pneumothorax. The cardiac silhouette is prominent but stable. Central vasculature is unremarkable. IMPRESSION: Stable chest. No definite acute pathology by plain radiograph. Electronically signed by James Loera 06/29/2019 8:42 PM
[2019-06-29] MEDS ORDERED: LASIX IV ONE (23:33)
[2019-06-29] MEDS ORDERED: LOVENOX 1 MG/KG SUBQ ONE (23:33)
[2019-06-29] MEDS ORDERED: ZOFRAN IV PRN (23:42)
[2019-06-29] MEDS ORDERED: TYLENOL PO PRN (23:42)
[2019-06-29] MEDS ORDERED: MORPHINE IV PRN (23:42)
[2019-06-29] MEDS ORDERED: LOVENOX ONE (23:46)
[2019-06-30 06:19] LABS: BASO# 0.02 X1000 (0.0-0.2); BASO% 0.3 % (0.0-0.8); EOS# 0.05 X1000 (0.0-0.7); EOS% 0.7 % (0.0-10.0); HEMATOCRIT 42.6 % (42.0-52.0); HEMOGLOBIN 13.7 g/dL (14.0-18.0); IMM GRAN# 0.01 X1000 (0.0-0.04); IMM GRAN% 0.1 % (0.0-0.5); LYMPH% 31.9 % (20.5-51.1); MCHC 32.2 g/dL (33-37); MCV 90.3 FL (81-99); MONO# 0.47 X1000 (0.11-0.59); MONO% 6.3 % (1.7-9.3); MPV 11.1 FL (7.4-10.4); NEUT# 4.57 X1000 (1.4-6.5); NEUT% 60.7 % (42.2-75.2); PLT 253 X1000 (130-400); RBC 4.72 XMIL (4.7-6.1); RDW 13.2 % (11.5-14.5); WBC 7.52 X1000 (4.8-10.8)
--- NOTE | 2019-06-30 06:33 | Diag Imaging Result Doc PS360 ---
CT ANGIOGRM PULMONARY ARTERIES - 06/29/2019 INDICATION: SOB, Elevated D-Dimer TECHNIQUE: Axial CT images were obtained after administering intravenous contrast. Coronal MIP images were generated. COMPARISON: 03/11/2019 FINDINGS: There is significant cardiomegaly. No pulmonary embolism. No significant adenopathy. There is significant reflux of contrast past the heart into the IVC. Otherwise upper abdominal images are unremarkable. There is some mild hazy interstitial pulmonary edema worst in the lung bases. No focal infiltrates. Airways are clear. Bones are intact and well mineralized. IMPRESSION: Negative for pulmonary embolism. Congestive heart failure. This exam was performed using automated exposure control, adjustment of mA or kV according to patient size, and/or use of iterative reconstruction technique Electronically signed by Francesco Capps 06/30/2019 6:30 AM
[2019-06-30 06:47] LABS: AGAP 15; ALBUMIN 3.5 g/dL (3.5-5.0); ALKALINE PHOSPHATASE 69 U/L (32-122); BUN 22 mg/dL (8-22); CALCIUM 8.5 mg/dL (8.8-10.2); CHLORIDE 102 mmol/L (98-107); COSMO 280; CREATININE 1.2 mg/dL (0.7-1.2); ESTIMATED GFR > 60; GLUCOSE 114 mg/dL (70-104); GOT 14 U/L (10-34); GPT 13 U/L (10-44); POTASSIUM 4.1 mmol/L (3.5-5.1); SODIUM 138 mmol/L (136-145); TCO2 21 mmol/L (25-35); TOTAL PROTEIN 5.9 g/dL (6.3-8.3)
--- NOTE | 2019-06-30 07:23 | EKG Report ---
Test Performed on : 06/29/2019 7:04:05 PM Test Reason : CP Blood Pressure : / mmHG Vent. Rate : 118 BPM Atrial Rate : 118 BPM P-R Int : 154 ms QRS Dur : 082 ms QT Int : 328 ms P-R-T Axes : 048 -16 001 degrees QTc Int : 459 ms Sinus tachycardia. Left atrial enlargement Anterior infarct (cited on or before 16-JUN-2019) T wave abnormality, consider lateral ischemia Abnormal ECG When compared with ECG of 16-JUN-2019 17:43, (Unconfirmed) Serial changes of Anterior infarct present Unconfirmed Result
[2019-06-30] MEDS: LASIX IV SCH ×2 (08:29→22:10)
[2019-06-30 09:05] LABS: URINE SOURCE CLEAN CATCH
[2019-06-30 09:07] LABS: BILIRUBIN URINE NEGATIVE (NEGATIVE); BLOOD URINE NEGATIVE (NEGATIVE); COLOR YELLOW; GLUCOSE URINE NEGATIVE (NEGATIVE); KETONE URINE NEGATIVE (NEGATIVE); LEUKOCYTES URINE SMALL (NEGATIVE); NITRITE URINE NEGATIVE (NEGATIVE); PH URINE 6.5; PROTEIN URINE TRACE mg/dL (NEGATIVE); TURBIDITY URINE CLEAR (CLEAR); UR EPITHELIAL CELLS <10 /HPF (<10); URINE BACTERIA NEGATIVE /HPF; URINE RBC <10 /HPF (<10); URINE WBC <10 /HPF (<10); UROBILINOGEN URINE NORMAL (NORMAL)
[2019-06-30 09:09] LABS: HEMOGLOBIN A1C 5.7 % (4.8-6.0)
[2019-06-30 09:18] LABS: UR AMPHETAMINES QUAL NONE DETECTED (NONE DETECT); UR BARBITUATES QUAL NONE DETECTED (NONE DETECT); UR BENZODIAZEPIN QUAL NONE DETECTED (NONE DETECT); UR METHADONE QUAL NONE DETECTED (NONE DETECT); UR METHAMPHETAMINE QUAL NONE DETECTED (NONE DETECT); UR OPIATES QUAL PRESUMPTIVE POSITIVE (NONE DETECT); UR OXYCODONE QUAL NONE DETECTED (NONE DETECT)
[2019-06-30 09:19] LABS: UR CANNABINOIDS QUAL PRESUMPTIVE POSITIVE (NONE DETECT); UR COCAINE QUAL PRESUMPTIVE POSITIVE (NONE DETECT); UR PCP QUAL NONE DETECTED (NONE DETECT); UR PROPOXYPHENE QUAL NONE DETECTED (NONE DETECT); UR TCA QUAL NONE DETECTED (NONE DETECT)
[2019-06-30] MEDS: COREG PO SCH ×2 (09:23→22:08)
[2019-06-30] MEDS: ENTRESTO 24 MG-26 MG TABLET PO SCH ×2 (09:23→22:08)
[2019-06-30] MEDS: ALDACTONE PO SCH (09:24)
--- NOTE | 2019-06-30 12:06 | Vascular Study Report ---
Venous U/S Bilateral Legs - 06/30/2019 INDICATION: edema, + D-Dimer TECHNIQUE: COMPARISON: None FINDINGS: The veins of the lower extremities are fully compressible. There is normal color and pulse wave Doppler signal. IMPRESSION: Negative exam. Electronically signed by Francesco Capps 06/30/2019 12:04 PM
--- NOTE | 2019-06-30 12:49 | HISTORY AND PHYSICAL ---
PRIMARY CARE PROVIDER: No one. VARNISH INSPECTOR: Dr. Avila. CHIEF COMPLAINT: Chest pain and shortness of breath. HISTORY OF PRESENT ILLNESS: Mr. Desiree Diamond is a 43-year-old, male who most recently saw Dr. Avila in the office. Had a change in his medication and misunderstood. Thought he was supposed to stop his Lasix and spironolactone, so he went without it for 3 days. Yesterday, had sudden chest pain radiating to the abdomen. Had some nausea with it and no other complaints other than he has admitted to a 13 pound weight gain and more edema in his lower extremities, so he has since been resumed back on his medications. The Lasix was changed to IV for now and we will continue to monitor. PAST MEDICAL HISTORY: 1. Hypertension. 2. Cocaine abuse. 3. Marijuana abuse. 4. Myocardial infarction secondary to cocaine abuse. That was December 2017. Left heart catheterization was without coronary artery disease. 5. Systolic congestive heart failure with left last ejection fraction in December of 2018 being 15 to 20 percent and a PA systolic of 75. 6. Moderate to severe pulmonary artery hypertension. SURGICAL HISTORY: Left heart catheterization in December 2017, right radial approach. It was a clean catheterization. SOCIAL HISTORY: Less than a half pack per day smoker since the age of 18. Smokes marijuana daily. Cocaine, last use was around a week ago. He said prior to that, it had been at least a month so he periodically still uses cocaine. Drinks Estrellita on the weekends, a few shots here and there. Not . Has 2 children. He is on disability. FAMILY HISTORY: Mother had colon cancer. Grandmother had 2 heart attacks. Brother has diabetes. Sister has hydrocephalus. He is unsure of his father's medical condition. ALLERGIES: No known drug allergies. HOME MEDICATIONS: 1. Coreg 6.25 mg p.o. twice daily. 2. Entresto 24/26 one tablet p.o. twice daily. 3. Spironolactone 25 mg p.o. daily. 4. Lasix 40 mg p.o. daily. REVIEW OF SYSTEMS: Fourteen point review of systems were complete and all were negative except for those mentioned above in the HPI. PHYSICAL EXAMINATION: VITAL SIGNS: Temperature 98.1 degrees, heart rate 105, respiratory rate 18, blood pressure 126/89, O2 saturation 99% on room air. GENERAL: Mr. Desiree Diamond is a 43-year-old, male. He is in no acute distress. He is taking deep breaths, so still feels short of breath. HEENT: Atraumatic, normocephalic. Pupils equal, round, reactive to light. Extraocular movements intact. Mucous membranes are moist. NECK: Trachea midline. CARDIOVASCULAR: S1, S2. Regular rate and rhythm. No rubs, gallops, or murmurs. He has lower extremity pitting edema. There are +2 dorsalis and radial pulses. Positive JVD. Negative carotid bruits. PULMONARY: Clear to auscultate bilateral breath sounds. No accessory muscle use. Mild work of breathing. Tolerating room air. GASTROINTESTINAL: Soft, nontender, nondistended. Positive bowel sounds x4. EXTREMITIES: Moves all extremities equally. Full range of motion. NEUROLOGIC: A and O x3. Follows commands. Sensory is intact. SKIN: Warm, dry, intact. LABORATORY DATA: White blood cells 7000, hemoglobin 13, hematocrit 42, platelet count 253,000. Sodium 138, potassium 4.1, BUN 22, creatinine is 1.2, glucose 114, hemoglobin A1c is 5.7, calcium 8.5. Bilirubin is 2.50, AST 14, ALT 13. CK 73, troponin 14. ProBNP 4831. Triglycerides 84, total cholesterol 116, LDL 80. Hemoglobin A1c is 5.7. Urinalysis, trace protein, small leukocytes. Urine drug screen, positive opiates but he had received those here from us on this admission. He was also positive for cocaine and cannabinoids. IMAGING: Chest x-ray, stable chest. EKG, sinus tachycardia, rate 118, QTc was 459. Pulmonary arteriogram, negative for pulmonary embolism, congestive heart failure. Lower extremity DVT check it is not resulted yet. ASSESSMENT AND PLAN: 1. Elevated D-dimer. Negative for pulmonary embolism. Waiting for venous ultrasound results. 2. Acute on chronic systolic congestive heart failure. He had stopped the spironolactone and Lasix at home. We will continue Entresto, Coreg, Lasix, and spironolactone, but the Lasix is intravenous for now. 3. Cocaine abuse. He was positive for it. Cessation discussed and the importance of the fact that it can cause chest pain and other congestive heart failure symptoms. 4. Chest pain. That is resolved. Cardiac enzymes are negative. 5. Pulmonary artery hypertension. We will get a new echocardiogram ordered. 6. Deep venous thrombosis prophylaxis. Sequential compression devices. Dictated by JESICA Campbell for Tan Chase MD cc: JESICA Campbell MD
--- NOTE | 2019-06-30 19:47 | ECHO REPORT ---
ORDER DATE: 06/30/2019 INDICATION: CHF. M-MODE MEASUREMENTS: Left ventricle end diastole: 3.8. Left ventricle end systole: 3.2. Posterior wall: 1.1. Interventricular septum: 1.2. Left atrium: 5.4. Aortic diameter: 3.4. SUMMARY OF 2-DIMENSIONAL IMAGIN. The study is somewhat difficult. The left ventricular chamber is markedly dilated. Global left ventricular systolic function is severely impaired. Global ejection fraction visually appears to be on the order of 15% to 20%. Impairment is lower. 2. The aortic valve looks grossly normal. Color flow mapping unremarkable. 3. The mitral valve shows a moderately severe degree of regurgitation. 4. Pulse wave Doppler of mitral inflow shows a fusion of the E and A waves. 5. Tissue Doppler of septal and lateral mitral annulus is consistent with a severe diastolic dysfunction pattern. 6. The pulmonic valve shows no significant regurgitation. 7. The tricuspid valve shows a mild to moderate degree of regurgitation with pulmonary pressure estimated at 53 to 63 mmHg. The inferior vena cava is dilated. 8. There is a trivial degree of aortic regurgitation noted. 9. There is no pericardial effusion, no mass, and no thrombus. 10.The left atrium is markedly enlarged. 11.The right-sided chambers are also moderately enlarged. In summary, this study is consistent with a dilated cardiomyopathy, decompensated. cc: MD Parisa Girard CRNP
--- NOTE | 2019-07-01 01:14 | HISTORY AND PHYSICAL ---
ADDENDUM: Patient seen and examined by myself. Full note dictated and discussed with nurse practitioner. The patient presented to the hospital with increased cough, congestion and shortness of breath. He was recently started on Entresto but stopped his Lasix. [*]if he improves, he will be discharged home tomorrow. cc: Tan Chase MD
[2019-07-01 05:55] VITALS: BP 111/79
[2019-07-01] MEDS ORDERED: MORPHINE IV PRN (06:26)
[2019-07-01 09:33] LABS: BASO# 0.02 X1000 (0.0-0.2); BASO% 0.3 % (0.0-0.8); EOS# 0.07 X1000 (0.0-0.7); EOS% 0.9 % (0.0-10.0); HEMATOCRIT 45.6 % (42.0-52.0); HEMOGLOBIN 14.6 g/dL (14.0-18.0); IMM GRAN# 0.01 X1000 (0.0-0.04); IMM GRAN% 0.1 % (0.0-0.5); LYMPH# 1.56 X1000 (1.2-3.4); LYMPH% 20.8 % (20.5-51.1); MCH 28.9 PG (27-31); MCV 90.1 FL (81-99); MONO# 0.36 X1000 (0.11-0.59); MONO% 4.8 % (1.7-9.3); MPV 10.5 FL (7.4-10.4); NEUT# 5.47 X1000 (1.4-6.5); NEUT% 73.1 % (42.2-75.2); PLT 243 X1000 (130-400); RBC 5.06 XMIL (4.7-6.1); RDW 13.2 % (11.5-14.5); WBC 7.49 X1000 (4.8-10.8)
[2019-07-01] MEDS: COREG PO SCH (09:48)
[2019-07-01] MEDS: LASIX IV SCH (09:48)
[2019-07-01] MEDS: ENTRESTO 24 MG-26 MG TABLET PO SCH (09:48)
[2019-07-01] MEDS: ALDACTONE PO SCH (09:48)
[2019-07-01 09:49] LABS: ALBUMIN 3.6 g/dL (3.5-5.0); CALCIUM 8.7 mg/dL (8.8-10.2); CREATININE 1.4 mg/dL (0.7-1.2); MAGNESIUM 1.6 mg/dL (1.5-2.7); TOTAL PROTEIN 6.2 g/dL (6.3-8.3)
--- NOTE | 2019-07-01 15:03 | DISCHARGE SUMMARY ---
ADMISSION DATE: 06/29/2019 DISCHARGE DATE: 07/01/2019 ADMISSION DIAGNOSES: 1. Elevated D-dimer. 2. Acute on chronic systolic congestive heart failure. 3. Cocaine abuse. 4. Chest pain. 5. Pulmonary artery hypertension. DISCHARGE DIAGNOSES: 1. Elevated D-dimer, negative for pulmonary embolism, negative for deep venous thrombosis. 2. Acute on chronic systolic congestive heart failure secondary to the fact that he had stopped spironolactone and Lasix. Those were continued and he improved. 3. History of cocaine abuse, discussion of cessation instructed on patient. 4. Chest pain, resolved. 5. Pulmonary artery hypertension, most recent echocardiogram, pulmonary artery pressure 53 to 63. CONSULTATIONS: None. SURGERIES AND PROCEDURES: None. HOSPITAL COURSE: Mr. Desiree Diamond is a 43-year-old male with a medical history of congestive heart failure who sees Dr. Avila, who apparently was recently started on Entresto. I guess he just did not understand his instructions and he stopped the spironolactone and Lasix on his own. He started developing lower extremity swelling, edema, shortness of breath and chest discomfort. He presented with these symptoms. Symptoms improved after he was receiving IV Lasix and spironolactone was resumed back and now he will be discharged home. DISCHARGE VITAL SIGNS: Temperature 98.4 degrees, heart rate 104, respiratory rate 18, blood pressure 111/79, O2 saturation 100% on room air. LABORATORY DATA: White blood cells 7000, hemoglobin 14, hematocrit 45, platelet count 243,000. Sodium 138, potassium 4.0, BUN 19, creatinine is 1.4, glucose 171, calcium 8.7, bilirubin is 3.0, AST 14, ALT 12. ProBNP was 4831, albumin 3.6. Urine drug screen was positive for cocaine and cannabinoids. IMAGING: Chest x-ray on admission, stable chest, no acute findings. Pulmonary arteriogram negative for PE. Venous ultrasound negative for DVT. Echocardiogram, ejection fraction 15 to 20 percent. Pulmonary artery hypertension of 53 to 63 mm Hg. EKG, sinus tachycardia rate 118. DISCHARGE MEDICATIONS: 1. Coreg 6.25 mg p.o. twice daily. 2. Entresto 24/26 one tablet p.o. twice daily. 3. Spironolactone 25 mg p.o. daily. 4. Lasix 40 mg p.o. daily. DISCHARGE DIET: Heart healthy. DISCHARGE ACTIVITY: As tolerated. DISCHARGE INSTRUCTIONS: If your condition changes, contact physician and/or return to the emergency department. Changes may include, but not limited to shortness of breath, increased fatigue, excessive bleeding, unexplained weight loss or gain, unmanageable pain, signs or symptoms of infection. PHYSICIAN FOLLOWUP: Dr. Avila. Cecil Saleh, nurse practitioner. DISCHARGE DISPOSITION: Home. Dictated by JESICA Campbell for Tan Chase MD cc: JESICA Campbell MD
--- NOTE | 2019-07-02 07:45 | DISCHARGE SUMMARY ---
ADMISSION DATE: 06/29/2019 DISCHARGE DATE: 07/01/2019 On discharge, patient is awake, alert. He is pleasant, does have severe congestive heart failure with the EF of 15 to 20 percent. Currently, he is on Entresto although he stopped his Lasix at home which restarted it with IV as well as his Aldactone. Symptoms have improved. He has had marked improvement in his lower extremity swelling and therefore we will discharge patient home as he is up and moving about without any difficulty. cc: Tan Chase MD
== END 2019-07-01 15:06 | disposition home or self-care (01) | DRG 293 ==
LOC: P.ED 18:55 → P.MEDSURG 23:54 → SUATTDRO 23:54
PROVIDERS: ATTEND Family Medicine

== ENCOUNTER 2019-07-20 16:00 | Inpatient (IN) ==
[2019-07-20] MEDS ORDERED: LASIX IV ONE (16:18)
[2019-07-20 16:43] LABS: BASO# 0.04 X1000 (0.0-0.2); BASO% 0.5 % (0.0-0.8); EOS# 0.04 X1000 (0.0-0.7); EOS% 0.5 % (0.0-10.0); HEMOGLOBIN 15.7 g/dL (14.0-18.0); IMM GRAN# 0.01 X1000 (0.0-0.04); IMM GRAN% 0.1 % (0.0-0.5); LYMPH# 1.76 X1000 (1.2-3.4); LYMPH% 21.9 % (20.5-51.1); MCHC 32.7 g/dL (33-37); MCV 91.8 FL (81-99); MONO# 0.56 X1000 (0.11-0.59); MPV 10.9 FL (7.4-10.4); NEUT# 5.64 X1000 (1.4-6.5); PLT 270 X1000 (130-400); RBC 5.23 XMIL (4.7-6.1); RDW 14.4 % (11.5-14.5); WBC 8.05 X1000 (4.8-10.8)
[2019-07-20] MEDS ORDERED: LOPRESSOR IV ONE (16:43)
[2019-07-20] MEDS ORDERED: VASOTEC IV ONE (16:43)
--- NOTE | 2019-07-20 16:55 | Diag Imaging Result Doc PS360 ---
CHEST-2 VIEWS - 07/20/2019 INDICATION: SOB COMPARISON: 07/13/2019 FINDINGS: Stable severe cardiomegaly. No infiltrates or edema. No pneumothorax or pleural effusion. Pulmonary vascularity is grossly normal. IMPRESSION: Cardiomegaly. No change from prior. Electronically signed by Francesco Capps 07/20/2019 4:53 PM
[2019-07-20 17:03] LABS: INR 1.23; PROTIME 16.2 Seconds (11.0-16.0)
[2019-07-20 17:04] LABS: PTT 32.8 Seconds (22.3-41.8)
[2019-07-20 17:08] LABS: AGAP 15; ALBUMIN 3.9 g/dL (3.5-5.0); ALKALINE PHOSPHATASE 88 U/L (32-122); BUN 20 mg/dL (8-22); CALCIUM 8.9 mg/dL (8.8-10.2); CHLORIDE 101 mmol/L (98-107); CK PROFILE 75 U/L (24-204); COSMO 280; CREATININE 1.3 mg/dL (0.7-1.2); ESTIMATED GFR > 60; GLUCOSE 136 mg/dL (70-104); GOT 23 U/L (10-34); GPT 23 U/L (10-44); POTASSIUM 4.7 mmol/L (3.5-5.1); SODIUM 138 mmol/L (136-145); TCO2 23 mmol/L (25-35); TOTAL PROTEIN 6.1 g/dL (6.3-8.3)
--- NOTE | 2019-07-20 17:29 | EKG Report ---
Test Performed on : 07/20/2019 4:39:12 PM Test Reason : SOB Blood Pressure : / mmHG Vent. Rate : 121 BPM Atrial Rate : 121 BPM P-R Int : 136 ms QRS Dur : 082 ms QT Int : 326 ms P-R-T Axes : 055 -06 -49 degrees QTc Int : 462 ms Sinus tachycardia. Possible Left atrial enlargement T wave abnormality, consider lateral ischemia Abnormal ECG When compared with ECG of 29-JUN-2019 19:04, (Unconfirmed) No significant change was found Unconfirmed Result
[2019-07-20 17:34] LABS: URINE SOURCE CLEAN CATCH
[2019-07-20 17:44] LABS: BILIRUBIN URINE NEGATIVE (NEGATIVE); BLOOD URINE NEGATIVE (NEGATIVE); COLOR YELLOW; GLUCOSE URINE NEGATIVE (NEGATIVE); KETONE URINE NEGATIVE (NEGATIVE); LEUKOCYTES URINE SMALL (NEGATIVE); NITRITE URINE NEGATIVE (NEGATIVE); PH URINE 6.5; PROTEIN URINE 50 mg/dL (NEGATIVE); SP GRAVITY URINE 1.008; TURBIDITY URINE CLEAR (CLEAR); UROBILINOGEN URINE NORMAL (NORMAL)
[2019-07-20 17:45] LABS: UR EPITHELIAL CELLS <10 /HPF (<10); URINE BACTERIA NEGATIVE /HPF; URINE RBC <10 /HPF (<10); URINE WBC <10 /HPF (<10)
[2019-07-20] MEDS ORDERED: ZOFRAN IV ONE (17:46)
[2019-07-20 17:54] LABS: UR AMPHETAMINES QUAL NONE DETECTED (NONE DETECT); UR BARBITUATES QUAL NONE DETECTED (NONE DETECT); UR BENZODIAZEPIN QUAL NONE DETECTED (NONE DETECT); UR CANNABINOIDS QUAL PRESUMPTIVE POSITIVE (NONE DETECT); UR COCAINE QUAL NONE DETECTED (NONE DETECT); UR METHADONE QUAL NONE DETECTED (NONE DETECT); UR METHAMPHETAMINE QUAL NONE DETECTED (NONE DETECT); UR OPIATES QUAL NONE DETECTED (NONE DETECT); UR OXYCODONE QUAL NONE DETECTED (NONE DETECT); UR PCP QUAL NONE DETECTED (NONE DETECT); UR PROPOXYPHENE QUAL NONE DETECTED (NONE DETECT); UR TCA QUAL NONE DETECTED (NONE DETECT)
--- NOTE | 2019-07-20 17:56 | PROVIDER DOCUMENTATION ---
This chart was entered by Trish Philip Scribe, acting as scribe for John Swenson MD. HPI-General Adult - General Chief Complaint: Edema Stated Complaint: LEGS SWOLLEN Time Seen by Provider: 07/20/19 16:08 Source: patient Allergies/Adverse Reactions: Patient Allergies Allergy/AdvReac Type Severity Reaction Status Date / Time No Known Allergies Allergy Verified 07/20/19 16:12 Home Medications: Home Medication List Medication Instructions Recorded Confirmed Last Taken Type Spironolactone [Aldactone] 25 mg PO DAILY 30 Days #30 tab 03/24/19 07/20/19 06/02/19 Rx Sacubitril/Valsartan [Entresto 24 1 ea PO BID 06/30/19 07/20/19 Unknown History mg-26 mg Tablet] Furosemide [Lasix] 40 mg PO DAILY #1 tab 07/13/19 07/20/19 Unknown Rx Potassium Chloride 10 meq PO DAILY 07/13/19 07/20/19 Unknown History - History of Present Illness -Gen Adult Nature of Presenting Problems: Patient is a 43 year old male who presents with swelling to bilateral lower extremities, shortness of breath and abdominal pain. States symptoms have gradually worsened. Reports being seen in [facility] ER for similar symptoms 4 days ago. States taking Lasix 40 mg BID. Does not report chest pain. Location of Pain/Injury: reports: abdomen Pain Radiation: reports: no radiation Quality of Pain: reports: aching Severity: reports: mild Onset/Duration: reports: gradual Timing: reports: still present, getting worse Context/Activities at Onset: reports: light activity Associated Symptoms: reports: shortness of breath, other (swelling to bilateral lower extremities) Review of Systems - Adult - REVIEW OF SYSTEMS - ADULT Constitutional: reports: no symptoms reported Eyes: reports: no symptoms reported Ears, Nose, Mouth & Throat: reports: no symptoms reported Cardiovascular: reports: no symptoms reported Respiratory: reports: see HPI, shortness of breath Gastrointestinal: reports: see HPI, abdominal pain Genitourinary: reports: no symptoms reported Musculoskeletal: reports: no symptoms reported Integumentary: reports: no symptoms reported Neurological: reports: no symptoms reported Psychiatric: reports: no symptoms reported Endocrine: reports: no symptoms reported Hematologic/Lymphatic: reports: no symptoms reported Allergic/Immunologic: reports: no symptoms reported All Other Systems: Reviewed and Negative Past History - Adult - PAST MEDICAL HISTORY-ADULT Review of Records: reports: Old Records Reviewed, Nursing Assessment Review, Medications Reviewed, Social history reviewed & non-contributory. Major Childhood Illnesses: reports: denies history Cardiovascular: reports: cardiac disease, CAD, CHF, HTN, CT Respiratory: reports: denies history Gastrointestinal: reports: denies history Obstetrical/Gynecological: reports: denies history Genitourinary: reports: denies history Musculoskeletal: reports: denies history Neurological: reports: denies history Psychiatric: reports: denies history Endocrine/Immune: reports: denies history Other Conditions: reports: denies history - PRIOR SURGERIES/PROCEDURES Surgical/Procedure History: reports: orthopedic (extremity) - IMMUNIZATION STATUS Childhood Immunizations: See Nurse Assessment Flu Vaccine: See Nurse Assessment - FAMILY HISTORY Family History: reviewed, not pertinent - SOCIAL HISTORY Smoking: cigarettes (former) Substance Use: denies Living Situation: family Physical Exam-General - PHYSICAL EXAM-ADULT Initial Vital Signs Reviewed: Yes - CONSTITUTIONAL General Appearance: appears well, alert, no apparent distress. negative: l ethargic - EYES Eyes: scleral icterus - RESPIRATORY Respiratory: chest non-tender, other (diminished breath sounds). negative: rhonchi, wheezing - CARDIOVASCULAR Cardiovascular: JVD, tachycardia. negative: systolic murmur - GASTROINTESTINAL (ABDOMEN) Abdominal Exam: normal bowel sounds, non tender, soft. negative: distended - MUSCULOSKELETAL Extremity: non-tender, swelling (to bilateral lower extremities up to mid thigh.) - SKIN Integumentary: normal color, normal turgor, warm/dry. negative: diaphoresis, pallor - NEUROLOGIC Neurologic: grossly normal. negative: aphasia, facial droop - PSYCHIATRIC Psych/Mental Status: normal mood/affect, normal thought content, normal thought process, oriented x 3. negative: paranoid Progress - PLAN OF CARE/RESULTS Progress/Plan/Lab Results: Vital Signs - 8 hr 07/20/19 16:03 Temperature 97.6 F Pulse Rate 87 Respiratory Rate 18 Blood Pressure 107/86 O2 Sat by Pulse Oximetry 97 Result Diagrams: 07/20/19 16:30 07/20/19 16:30 - REASSESSMENT Reassessment #1 Time Reassessed: 17:54 Status: improving (Given IVF lasix, enalapril and metoprolol. States does not feel well. Given Ondansetoron for nausea. Review of old labs show that his Bili is much higher than usual) - EKG 1 Time of EKG reading by physician:: 16:39 EKG Read and Signed by:: John Swenson EKG Interpretation (*Must complete 3 of following elements*): Abnormal Rate: 121 Rhythm: sinus tach QRS: LVH MT Interval: normal Comments: biatrial enlargement; NSSTTWC - XRAY 1 XRAY Study: Chest Impression: See EMR Report (CHEST-2 VIEWS - 07/20/2019 INDICATION: SOB COMPARISON: 07/13/2019 FINDINGS: Stable severe cardiomegaly. No infiltrates or edema. No pneumothorax or pleural effusion. Pulmonary vascularity is grossly normal. IMPRESSION: Cardiomegaly. No change from prior. Electronically signed by Francesco Capps 07/20/2019 4:53 PM 07/20/191652 Interpreting Physician: Francesco Capps MD Dictated Date/Time: 07/20/191651 cc: John Swenson MD; None,PCP) - CONSULTS/PCP/HOSPITALIST Notification #1 *Consult/PCP/Hospitalist*: Salvatore Time Discussed: 17:55 Consult Disposition: Will see in ED, Admit Departure - Departure Date of Disposition Decision: 07/20/19 Time of Disposition Decision: 17:55 DIAGNOSIS: Acquired hyperbilirubinemia Acute exacerbation of CHF (congestive heart failure) Qualifiers: Heart failure type: combined systolic and diastolic Qualified Code(s): I50.43 - Acute on chronic combined systolic (congestive) and diastolic (congestive) heart failure Class 4 congestive heart failure Qualifiers: Congestive heart failure type: combined Congestive heart failure chronicity: acute on chronic Qualified Code(s): I50.43 - Acute on chronic combined systolic (congestive) and diastolic (congestive) heart failure Disposition: ADMITTED INPATIENT 09 Certified Medical Emergency: Emergent Condition: Fair Referrals and Follow-Ups: None,PCP [Primary Care Provider] - - Critical Care Note This patient required my direct & personal management of CC.: Yes Total Time (mins): 45 Critical Care Statement: This patient required my direct personal management to treat or rule out processes, the absence of which, could potentiallly result in sudden, clinically significant life or limb threatening deterioration. Attestation - Physician/ JUD Attestation Patient care was provided by Advanced Practice Provider:: No The physician spent face to face time with patient:: Yes Advanced Practice Provider documentation review:: Supervising physician onsite and consulted in the evaluation and care of this patient. The physician did have a face to face encounter with the patient. This chart was documented by the indicated scribe, (Trish Philip Scribe) and accurately reflects the services I performed and decisions made by me, John Swenson MD, as attested by the provider's signature.
[2019-07-20] MEDS ORDERED: ZOFRAN IV PRN (19:10)
--- NOTE | 2019-07-20 19:17 | HISTORY AND PHYSICAL ---
ADDENDUM: Patient presented to the hospital with abdominal pain, swelling in his lower extremities. Bilirubin was noted to be 7. Does have some mild jaundice and has 2 to 3+ swelling in his lower extremities. States he has been having sit up in a chair to breathe. We are going to admit to the hospital attempt diuresis and we will follow. cc: Tan Chase MD
[2019-07-20] MEDS ORDERED: NICODERM PATCH TD PRN (19:18)
--- NOTE | 2019-07-20 19:37 | HISTORY AND PHYSICAL ---
CHIEF COMPLAINT: Abdominal swelling, lower extremity edema, and nausea. HISTORY OF PRESENT ILLNESS: This is a 43-year-old gentleman with a prior history of hypertension, cocaine abuse, marijuana abuse, myocardial infarction secondary to cocaine, heart failure with an ejection fraction of 15 to 20 percent, pulmonary hypertension with his PA systolic of 75 at last echocardiogram. It looks like that was probably in about 2018. He presents to the emergency room stating that he has had increasing lower extremity edema, dyspnea on exertion, orthopnea over the last 4 to 5 weeks. He stated that he went to [facility] 4 days ago, was given IV Lasix and told to continue taking his regular medications and sent home. He comes in today stating that over the last 2 to 3 days he has had to sleep sitting up in a chair because of shortness of breath. He denies any chest pain or palpitations, any fevers or chills, a productive cough, any vomiting. He does state that he has had diarrhea over the last week or 2 and that his stool did change color while having a bowel movement in the emergency room. He stated it was dark although he is unsure about any blood being present. PAST MEDICAL HISTORY: 1. Hypertension. 2. Cocaine abuse. 3. Marijuana abuse. 4. Myocardial infarction secondary to cocaine abuse in December 2017. Left heart catheterization at that time was clear for coronary artery disease. 5. Systolic congestive heart failure with his last ejection fraction 15 to 20 percent in December 2018. 6. Moderate to severe pulmonary artery hypertension with a PA systolic of 75. SURGICAL HISTORY: He denies. SOCIAL HISTORY: He smokes about a pack a day. He has since he was 18. He states that he has not smoked cigarettes though in the last 2 to 3 weeks because it makes him more nauseated. He does smoke marijuana daily, having his last smoke last night. He states he used to use cocaine. He has not been quite some time. He states he drank 3 or 4 beers last night and usually drinks 3 to 4 beers daily. He has a significant other. He has 2 children. He is on disability. FAMILY HISTORY: Positive for CAD in his grandmother who had 2 heart attacks. Brother has diabetes. His mother had colon cancer. ALLERGIES: No reported allergies. HOME MEDICATIONS: A list will be obtained by the nursing staff and once verified, we will review and restart as appropriate. REVIEW OF SYSTEMS: Discussed with the patient with pertinent positives stated in the HPI. He denied any syncope or dizziness, any chest pain or palpitations, any fevers or chills, a productive cough, any black or bloody vomitus, any hematuria, dysuria, frequency or urgency. PHYSICAL EXAMINATION: GENERAL: This is a 43-year-old gentleman who is sitting on the stretcher in the emergency room in no distress. VITAL SIGNS: Blood pressure is 105/82 with a heart rate of 106, respirations are 20 to 22, temperature is 97.6 degrees oral with room air saturations 96 to 97%. EYES: Pupils are equal, round, react to light. EOMs are intact. Sclerae are icteric. NECK: Supple with trachea midline. He does have JVD. CARDIOVASCULAR: Regular rate and rhythm. S1 and S2 appreciated. He is tachycardic. No systolic murmur heard. He has lower extremity edema from the trunk down, 4+ pitting in his bilateral legs. PULMONARY: Breath sounds are diminished throughout. Chest rises and falls symmetric with respiration. He has no increased work of breathing noted. GASTROINTESTINAL: Abdomen is distended slightly. It is soft. It is tender to palpation throughout. Bowel sounds are positive in all 4 quadrants. SKIN: Warm and dry. NEUROLOGIC: He is alert and oriented x3. LABS: WBC is 8 with hemoglobin 15.7, hematocrit 48, platelets of 270,000. INR is 1.23. Sodium 138, potassium 4.7, BUN 20, creatinine 1.3 with a glucose of 136, total bilirubin is 6. ProBNP is 7283 with a total protein of 6.1. Urinalysis is essentially negative. Urine drug screen is presumptive positive for cannabinoids. Chest x-ray revealed cardiomegaly. No infiltrates or edema. Albumin is 3.9. EKG reveals sinus tachycardia at a rate of 121. ASSESSMENT AND PLAN: 1. Hyperbilirubinemia. In review of the patient's past records in December 2018, he had a CT of the abdomen and pelvis, which revealed a collapsed gallbladder with nonspecific wall thickening. He then had an abdominal ultrasound that revealed a gallbladder wall that is thickened up to 4.9 mm. Common bile duct was normal. Cedeño sign was negative. No gallstones were identified. He will be n.p.o.. We will check a HIDA scan in the morning. 2. Congestive heart failure. Systolic with an ejection fraction of 15 to 20 percent on echo. This was on 06/29/2019, which was consistent with dilated cardiomyopathy. He was given Lasix 100 mg in the emergency room. We will give Lasix 60 mg b.i.d. monitor strict intake and output and daily weights. We will identify his home medications and continue as appropriate. 3. Nausea. We will use Zofran. 4. Cannabinoid use and abuse. I did discuss with the patient the need to stop smoking, offering ways to help and at this time he states that he is not ready to stop. 5. Continued nicotine abuse. We did discuss smoking cessation. The patient states that he thinks he is ready to stop smoking. He will be given written materials. 6. Hypertension. We will continue home medications as appropriate. 7. Moderate to severe pulmonary artery hypertension. Aware. 8. We will get a CBC, CMP, magnesium in the morning. 9. Chronic kidney disease with a baseline creatinine looks like 1.3 to 1.4. We will monitor. Plan was discussed with Dr. Chase. Further treatments pending hospital course. Dictated by JESICA Alejandro for Tan Chase MD cc: JESICA Alejandro MD
[2019-07-20] MEDS ORDERED: LASIX IV SCH (21:00)
[2019-07-20] MEDS: ZOSYN 3.375 GM in NS 50 ML IV SCH (21:17)
[2019-07-20] MEDS: ENTRESTO 24 MG-26 MG TABLET PO SCH (21:17)
[2019-07-21] MEDS: ZOSYN 3.375 GM in NS 50 ML IV SCH ×4 (03:05→20:19)
[2019-07-21 06:04] LABS: HEMATOCRIT 46.1 % (42.0-52.0); HEMOGLOBIN 14.7 g/dL (14.0-18.0); MCH 30.1 PG (27-31); MCHC 31.9 g/dL (33-37); MCV 94.3 FL (81-99); MPV 10.9 FL (7.4-10.4); RBC 4.89 XMIL (4.7-6.1); RDW 14.4 % (11.5-14.5); WBC 8.45 X1000 (4.8-10.8)
[2019-07-21 07:07] LABS: ALBUMIN 3.1 g/dL (3.5-5.0); CALCIUM 8.5 mg/dL (8.8-10.2); CREATININE 1.4 mg/dL (0.7-1.2); TOTAL BILIRUBIN 4.7 mg/dL (0.20-1.00); TOTAL PROTEIN 5.6 g/dL (6.3-8.3)
[2019-07-21 07:50] LABS: POTASSIUM 4.4 mmol/L (3.5-5.1)
--- NOTE | 2019-07-21 10:13 | EKG Report ---
Test Performed on : 07/21/2019 10:11:37 AM Test Reason : irregular telemetry strip Blood Pressure : / mmHG Vent. Rate : 101 BPM Atrial Rate : 101 BPM P-R Int : 154 ms QRS Dur : 082 ms QT Int : 376 ms P-R-T Axes : 063 059 -71 degrees QTc Int : 487 ms Sinus tachycardia. Right atrial enlargement Anterior infarct , age undetermined ST & T wave abnormality, consider inferolateral ischemia Abnormal ECG When compared with ECG of 20-JUL-2019 16:39, (Unconfirmed) Questionable change in QRS axis Inverted T waves have replaced nonspecific T wave abnormality in Inferior leads T wave inversion less evident in Lateral leads Unconfirmed Result
[2019-07-21] MEDS: ALDACTONE PO SCH (10:29)
[2019-07-21] MEDS: ENTRESTO 24 MG-26 MG TABLET PO SCH ×2 (10:29→20:20)
[2019-07-21] MEDS: LASIX IV SCH ×2 (10:29→20:20)
--- NOTE | 2019-07-21 22:29 | PROGRESS NOTE ---
DATE: 07/21/2019 SUBJECTIVE: The patient notes he is feeling a little bit better today. He denies any fevers or chills. He states that he is ready to eat. Denies dysuria or frequency. OBJECTIVE: Temperature 98 degrees, pulse 105, respiratory rate 18, BP 115/85.General: The patient is awake, pleasant, in no distress. HEENT: Normocephalic. Neck supple. Cardiovascular: Regular rate. Chest clear. Abdomen soft. Extremities: Moves all extremities. Neurologic: No changes. ASSESSMENT: 1. Hyperbilirubinemia, likely secondary to liver congestion. 2. Congestive heart failure, systolic, with ejection fraction of 15% to 20% on recent echocardiogram 06/28. 3. Nausea. 4. Cannabinoid use. 5. Nicotine use. 6. Hypertension. 7. Moderate to severe pulmonary hypertension. PLAN: We are going to continue the patient in the hospital. If his blood pressures will tolerate it, we will increase his Entresto. His bilirubin is down from 7 to 4.5. We are going to allow him to eat, continue Lasix, Aldactone. Further orders as needed. cc: Tan Chase MD
[2019-07-22] MEDS: ZOSYN 3.375 GM in NS 50 ML IV SCH ×2 (01:37→10:16)
[2019-07-22 05:48] LABS: HEMATOCRIT 49.3 % (42.0-52.0); MCH 29.8 PG (27-31); MCHC 32.5 g/dL (33-37); MCV 91.8 FL (81-99); MPV 10.5 FL (7.4-10.4); RBC 5.37 XMIL (4.7-6.1); RDW 14.2 % (11.5-14.5); WBC 8.99 X1000 (4.8-10.8)
[2019-07-22 06:04] LABS: ALBUMIN 3.2 g/dL (3.5-5.0); CALCIUM 8.3 mg/dL (8.8-10.2); CREATININE 1.6 mg/dL (0.7-1.2); MAGNESIUM 1.7 mg/dL (1.5-2.7); POTASSIUM 3.9 mmol/L (3.5-5.1); TOTAL BILIRUBIN 2.8 mg/dL (0.20-1.00); TOTAL PROTEIN 5.8 g/dL (6.3-8.3)
[2019-07-22] MEDS ORDERED: ENTRESTO 24 MG-26 MG TABLET PO SCH (09:00)
[2019-07-22] MEDS: LASIX IV SCH (09:18)
[2019-07-22] MEDS: ALDACTONE PO SCH (09:18)
[2019-07-22 14:44] VITALS: BP 113/78
--- NOTE | 2019-07-23 05:20 | DISCHARGE SUMMARY ---
ADMISSION DATE: 07/20/2019 DISCHARGE DATE: 07/22/2019 DISCHARGE DIAGNOSES: 1. Acute on chronic systolic congestive heart failure with an ejection fraction 15-20%. 2. Hyperbilirubinemia secondary to liver congestion, resolved. 3. Hypertension. 4. History of myocardial infarction in December of 2017. 5. Moderate to severe pulmonary hypertension. 6. Nausea, resolved. 7. Chronic cannabinoid use. 8. Chronic nicotine use. Again discussed with patient the perils of smoking as well as reasons to stop. CONSULTATIONS: None. PROCEDURES: None. BRIEF HOSPITAL COURSE: Patient is a 43-year-old male who presented to the hospital. Placed on Lasix IV at an increased dose as well as Aldactone. We did increase his Entresto as well. He tolerated all of this. On discharge, he is awake, alert. He is ambulating. He is in no distress. He is asking to go home. DISPOSITION: Greater than 30 minutes was spent in total care. Again discussed with patient how to check his weight each day, how to increase his Lasix as needed. Discussed he needs to follow up outpatient with his primary care. We did increase his Entresto, a new prescription was written for this as well as for increased dose of Lasix. cc: Tan Chase MD
[2019-07-23 09:05] LABS: HEPATITIS PROFILE ACUTE SEE COMMENTS
== END 2019-07-22 15:12 | disposition home or self-care (01) | DRG 291 ==
LOC: P.ED 16:00 → P.MEDSURG 20:28
PROVIDERS: ATTEND Family Medicine